=== PATIENT | female | born 1990 | race Caucasian/White ===

== ENCOUNTER 2016-12-12 14:58 | Inpatient (IN) | payer OTHER ==
[~2016-12-12] VITALS: Ht 160 cm; Wt 102.8 kg
[~2016-12-12 14:58] MED LIST: ALBU8.5H IH; ALEN35TA32 PO; ALPR0.5T8 PO; AMIT75 PO; AMOX1TAB16 PO; BECL8.7A5 IH; BETH25 PO; BUDE10.2 IH; CARI350 PO; DILT240C93 PO; FLUC200T PO; GABA-531 PO; GUAIFCF5L PO; MONT10TA21 PO; OMEP20CA4 PO; PERCT PO; SUCR1TAB PO; SUMA25TA9 PO; TIOT185 IH; TOPI25 PO
[2016-12-12] MEDS ORDERED: IPRATROPIUM BROMIDE 0.5 MG/2.5 ML NEB SOLUTION NEB ONE ×3 (15:30→17:30)
[2016-12-12] MEDS ORDERED: ALBUTEROL SULFATE 2.5 MG/0.5 ML NEB SOLUTION NEB ONE ×3 (15:30→17:30)
[2016-12-12 15:36] LABS: HEMATOCRIT 33.4 % (36-46); HEMOGLOBIN 10.6 g/dL (12.0-16.0); MEAN CORPUSCULAR HEMOGLOBIN 25.7 pg (26.0-34.0); MEAN CORPUSCULAR HGB CONC 31.9 G/dL (31.0-37.0); MEAN CORPUSCULAR VOLUME 81 fL (80-100); PLATELET COUNT (AUTO) 366 K/uL (150-450); RED BLOOD CELL COUNT(AUTO) 4.14 MIL/uL (4.00-5.20); RED CELL DISTRIBUTION WIDTH 19.5 % (11.5-14.5); WHITE BLOOD COUNT (AUTO) 15.6 K/uL (4.5-11.0)
[2016-12-12 15:43] LABS: CALCIUM, TOTAL 8.4 mg/dL (8.8-10.5); CREATININE 1.09 mg/dL (0.60-1.30); POTASSIUM 3.5 mmol/L (3.5-5.1)
[2016-12-12 15:48] LABS: ALBUMIN 3.6 g/dL (3.4-5.0); BILIRUBIN,TOTAL 0.1 mg/dL (0.1-1.0); TOTAL PROTEIN, SERUM 6.5 g/dL (6.4-8.2)
[2016-12-12] MEDS ORDERED: MethylPREDNISolone SOD SUCC 125 MG/2 ML VIAL IVP ONE (16:00)
[2016-12-12 16:07] LABS: EOSINOPHILS % (MANUAL) 1 % (1-6); LYMPHOCYTES % (MANUAL) 15 % (22-44); METAMYELOCYTES % 1 % (0-0); MYELOCYTES % 2 % (0-0); RBC MORPHOLOGY COMMENT ABNORMAL R; REACTIVE LYMPHOCYTES 2 % (0-0); TOTAL CELLS COUNTED 100
[2016-12-12 16:10] LABS: ABG A-A DIFF O2 104.2 mmHg (10-20.0); ABG BASE EXCESS -2.3 mmol/L (-2.0-3.0); ABG OXYHEMOGLOBIN 95.5 % (94.0-100.0); ABG PCO2 34 mmHg (35-45); ABG PH 7.428 (7.350-7.450); TEMPERATURE, FAHRENHEIT, BG 98.6 FAHREN (96.0-98.6)
[2016-12-12 16:15] LABS: ALLEN TEST, BLOOD GAS Positive
[2016-12-12] MEDS ORDERED: CefTRIAXone 1 GM/DEXTROSE 50 ML IV ONE (16:45)
[2016-12-12] MEDS ORDERED: MORPHINE SULFATE 4 MG/ML SYRINGE IVP ONE (16:45)
[2016-12-12] MEDS: PIPERACILLIN/TAZO 3.375 GM/D5W 50 ML IV SCH ×2 (17:27→23:34)
[2016-12-12] MEDS ORDERED: 0.9% SODIUM CHLORIDE 5 ML NEB SOLUTION NEB ONE (17:29)
[2016-12-12] MEDS ORDERED: 0.9% SODIUM CHLORIDE 10 ML SYRINGE IVP PRN (18:45)
[2016-12-12] MEDS ORDERED: ONDANSETRON HCL 4 MG/2 ML VIAL IVP PRN (18:45)
[2016-12-12] MEDS ORDERED: ACETAMINOPHEN 325 MG TABLET PO PRN (18:45)
[2016-12-12] MEDS ORDERED: ACETAMINOPHEN 325 MG TABLET PO ONE (19:30)
[2016-12-12 20:12] VITALS: BP 116/60
[2016-12-12 23:08] VITALS: BP 115/49
[2016-12-12] MEDS ORDERED: SODIUM CHLORIDE 0.9% 100 ML ONE (23:31)
[2016-12-13] MEDS: BENZONATATE 100 MG CAPSULE PO SCH ×4 (00:44→20:32)
[2016-12-13] MEDS ORDERED: ACETAMINOPHEN 325 MG TABLET PO PRN (01:45)
[2016-12-13] MEDS ORDERED: 0.9% SODIUM CHLORIDE 10 ML SYRINGE IVP PRN (01:45)
[2016-12-13] MEDS ORDERED: SUMAtriptan SUCCINATE 25 MG TABLET PO PRN (01:45)
[2016-12-13] MEDS ORDERED: ALPRAZolam 0.5 MG TABLET PO PRN (01:45)
[2016-12-13] MEDS ORDERED: MAGNESIUM HYDROXIDE SUSPENSION 30 ML UDCUP PO PRN (01:45)
[2016-12-13] MEDS ORDERED: OxyCODONE HCL/ACETAMINOPHEN 5-325 MG TABLET PO PRN (01:45)
[2016-12-13] MEDS ORDERED: ALBUTEROL SULFATE HFA 90 MCG/PUFF 8 GM INHALER IH PRN (01:45)
[2016-12-13] MEDS ORDERED: ALBUTEROL SULFATE 2.5 MG/0.5 ML NEB SOLUTION NEB PRN (01:45)
[2016-12-13] MEDS ORDERED: ONDANSETRON HCL 4 MG/2 ML VIAL IVP PRN (01:45)
[2016-12-13] MEDS: DOCUSATE SODIUM 100 MG CAPSULE PO SCH ×3 (02:19→20:31)
[2016-12-13] MEDS: CARISOPRODOL 350 MG TABLET PO SCH ×4 (02:19→23:06)
[2016-12-13] MEDS: GABAPENTIN 300 MG CAPSULE PO SCH ×4 (02:19→23:06)
[2016-12-13] MEDS: IPRATROPIUM BROMIDE 0.5 MG/2.5 ML NEB SOLUTION NEB SCH ×5 (02:20→23:03)
[2016-12-13] MEDS: ALBUTEROL SULFATE 2.5 MG/0.5 ML NEB SOLUTION NEB SCH ×4 (02:20→23:02)
[2016-12-13] MEDS: MethylPREDNISolone SOD SUCC 125 MG/2 ML VIAL IVP SCH ×3 (02:23→16:38)
[2016-12-13] MEDS: BUDESONIDE/FORMOTEROL FUMARATE 160-4.5 MCG/PUFF 6.9 GM INHALER IH SCH ×3 (02:29→20:32)
[2016-12-13] MEDS: BETHANECHOL CHLORIDE 25 MG TABLET PO SCH ×3 (02:29→20:31)
[2016-12-13 04:28] VITALS: BP 129/62
[2016-12-13] MEDS: PIPERACILLIN/TAZO 3.375 GM/D5W 50 ML IV SCH (05:00)
[2016-12-13] MEDS: OxyCODONE HCL/ACETAMINOPHEN 5-325 MG TABLET PO PRN ×4 (05:32→20:40)
[2016-12-13 08:07] VITALS: BP 123/65
[2016-12-13] MEDS: PANTOPRAZOLE SODIUM 40 MG/VIAL IVP SCH (09:31)
[2016-12-13] MEDS: BECLOMETHASONE DIPR 80 MCG/PUFF 8.7 GM INHALER IH SCH (09:32)
[2016-12-13] MEDS: TIOTROPIUM BROMIDE 18 MCG/INH HANDIHALER [5] IH SCH (09:33)
[2016-12-13] MEDS: MONTELUKAST SODIUM 10 MG TABLET PO SCH (09:34)
[2016-12-13] MEDS: DILTIAZEM HCL CD 240 MG ER CAPSULE PO SCH (09:34)
[2016-12-13] MEDS: TOPIRAMATE 25 MG TABLET PO SCH (09:34)
[2016-12-13] MEDS: SUCRALFATE 1 GM TABLET PO SCH ×3 (09:34→20:31)
[2016-12-13 12:13] VITALS: BP 115/57
[2016-12-13 16:05] VITALS: BP 99/57
[2016-12-13] MEDS ORDERED: CefTRIAXone 1 GM/DEXTROSE 50 ML IV SCH (17:00)
[2016-12-13 19:15] VITALS: BP 114/67
[2016-12-13] MEDS ORDERED: AMITRIPTYLINE HCL 75 MG TABLET PO SCH (21:00)
[2016-12-13 23:35] VITALS: BP 109/62
[2016-12-14] MEDS: MethylPREDNISolone SOD SUCC 125 MG/2 ML VIAL IVP SCH ×2 (00:25→08:10)
[2016-12-14] MEDS: ALBUTEROL SULFATE 2.5 MG/0.5 ML NEB SOLUTION NEB SCH ×3 (02:57→11:21)
[2016-12-14] MEDS: IPRATROPIUM BROMIDE 0.5 MG/2.5 ML NEB SOLUTION NEB SCH ×3 (02:57→11:21)
[2016-12-14] MEDS: OxyCODONE HCL/ACETAMINOPHEN 5-325 MG TABLET PO PRN ×2 (03:11→08:13)
[2016-12-14 06:04] VITALS: BP 126/57
[2016-12-14] MEDS ORDERED: ALENDRONATE SODIUM 35 MG TABLET PO ONE (06:15)
[2016-12-14 06:39] LABS: HEMATOCRIT 31.2 % (36-46); HEMOGLOBIN 9.8 g/dL (12.0-16.0); MEAN CORPUSCULAR HEMOGLOBIN 25.5 pg (26.0-34.0); MEAN CORPUSCULAR HGB CONC 31.5 G/dL (31.0-37.0); MEAN CORPUSCULAR VOLUME 81 fL (80-100); PLATELET COUNT (AUTO) 383 K/uL (150-450); RED BLOOD CELL COUNT(AUTO) 3.86 MIL/uL (4.00-5.20); RED CELL DISTRIBUTION WIDTH 20.3 % (11.5-14.5); WHITE BLOOD COUNT (AUTO) 25.6 K/uL (4.5-11.0)
[2016-12-14 06:53] LABS: ANION GAP 10 mmol/L (8-16); CALCIUM, TOTAL 8.8 mg/dL (8.8-10.5); CARBON DIOXIDE 26 mmol/L (22-29); CHLORIDE 103 mmol/L (98-107); CREATININE 1.06 mg/dL (0.60-1.30); GLOMERULAR FILTR. RATE CALC > 60 mL/min (>60); POTASSIUM 3.8 mmol/L (3.5-5.1); SODIUM SERUM 139 mmol/L (136-145); UREA NITROGEN, BLOOD 18 mg/dL (7-18)
[2016-12-14 07:48] VITALS: BP 129/57
[2016-12-14] MEDS: BENZONATATE 100 MG CAPSULE PO SCH (08:10)
[2016-12-14] MEDS: PANTOPRAZOLE SODIUM 40 MG/VIAL IVP SCH (08:10)
[2016-12-14] MEDS: GABAPENTIN 300 MG CAPSULE PO SCH (08:10)
[2016-12-14] MEDS: BECLOMETHASONE DIPR 80 MCG/PUFF 8.7 GM INHALER IH SCH (08:11)
[2016-12-14] MEDS: MONTELUKAST SODIUM 10 MG TABLET PO SCH (08:11)
[2016-12-14] MEDS: CARISOPRODOL 350 MG TABLET PO SCH (08:11)
[2016-12-14] MEDS: TIOTROPIUM BROMIDE 18 MCG/INH HANDIHALER [5] IH SCH (08:11)
[2016-12-14] MEDS: DOCUSATE SODIUM 100 MG CAPSULE PO SCH (08:11)
[2016-12-14] MEDS: TOPIRAMATE 25 MG TABLET PO SCH (08:12)
[2016-12-14] MEDS: BUDESONIDE/FORMOTEROL FUMARATE 160-4.5 MCG/PUFF 6.9 GM INHALER IH SCH (08:12)
[2016-12-14] MEDS: DILTIAZEM HCL CD 240 MG ER CAPSULE PO SCH (08:12)
[2016-12-14] MEDS: SUCRALFATE 1 GM TABLET PO SCH (08:12)
[2016-12-14] MEDS: BETHANECHOL CHLORIDE 25 MG TABLET PO SCH (08:13)
[2016-12-14 09:51] LABS: BAND NEUTROPHILS % (MANUAL) 2 % (1-5); LYMPHOCYTES % (MANUAL) 4 % (22-44); METAMYELOCYTES % 1 % (0-0); MYELOCYTES % 2 % (0-0); TOTAL CELLS COUNTED 100
[2016-12-14 09:52] LABS: RBC MORPHOLOGY COMMENT ABNORMAL R
[2016-12-18] MEDS ORDERED: ALENDRONATE SODIUM 35 MG TABLET PO SCH (06:30)
== END 2016-12-14 12:00 | disposition left against medical advice (07) | DRG 140 ==
LOC: EMS 15:06 → 5S 19:06
PROVIDERS: ADMIT Internal Medicine; ATTEND Internal Medicine
DX: J44.1 Chronic obstructive pulmonary disease with (acute) exacerbation (principal); Z99.81 Dependence on supplemental oxygen; E44.0 Moderate protein-calorie malnutrition; Z68.41 Body mass index [BMI] 40.0-44.9, adult; E66.01 Morbid (severe) obesity due to excess calories; I10 Essential (primary) hypertension; E78.00 Pure hypercholesterolemia, unspecified; G43.909 Migraine, unspecified, not intractable, without status migrainosus; E11.9 Type 2 diabetes mellitus without complications; R00.0 Tachycardia, unspecified; F41.9 Anxiety disorder, unspecified; Z87.01 Personal history of pneumonia (recurrent); Z88.8 Allergy status to other drugs, medicaments and biological substances; Z88.1 Allergy status to other antibiotic agents; Z91.011 Allergy to milk products; Z79.899 Other long term (current) drug therapy; I25.2 Old myocardial infarction; Z98.890 Other specified postprocedural states; Z90.49 Acquired absence of other specified parts of digestive tract; Z86.73 Personal history of transient ischemic attack (TIA), and cerebral infarction without residual deficits
CPT/HCPCS: 82805; 87040; 87081; 93005; 94060; 94640; 94660; 96365; 96375; 99285; C9113; J0696; J2270; J2543; J2930; J3535; J7050

== ENCOUNTER 2017-01-06 10:37 | Inpatient (IN) | payer OTHER ==
[~2017-01-06] VITALS: Ht 160 cm; Wt 104.8 kg
[2017-01-06 11:14] LABS: BASOPHILS % (AUTO) 0.2 % (0.0-2.0); EOSINOPHILS % (AUTO) 2.5 % (1.0-6.0); HEMATOCRIT 33.4 % (36-46); HEMOGLOBIN 10.5 g/dL (12.0-16.0); LYMPHOCYTES # (AUTO) 3.6 K/uL (1.0-4.8); LYMPHOCYTES % (AUTO) 28.2 % (22.0-44.0); MEAN CORPUSCULAR HEMOGLOBIN 24.9 pg (26.0-34.0); MEAN CORPUSCULAR HGB CONC 31.6 G/dL (31.0-37.0); MEAN CORPUSCULAR VOLUME 79 fL (80-100); MONOCYTES # (AUTO) 0.9 K/uL (0.1-1.0); NEUTROPHILS # (AUTO) 7.9 K/uL (1.8-7.7); NEUTROPHILS % (AUTO) 62.1 % (40.0-70.0); PLATELET COUNT (AUTO) 432 K/uL (150-450); RED BLOOD CELL COUNT(AUTO) 4.23 MIL/uL (4.00-5.20); WHITE BLOOD COUNT (AUTO) 12.8 K/uL (4.5-11.0)
[2017-01-06 11:28] LABS: INR 0.9 (0.9-1.1); PROTHROMBIN TIME 9.4 SEC (9.4-11.6)
[2017-01-06] MEDS ORDERED: MethylPREDNISolone SOD SUCC 125 MG/2 ML VIAL IVP ONE (11:30)
[2017-01-06 11:41] LABS: ALANINE AMINOTRANSFERASE 80 U/L (12-78); ALBUMIN 3.4 g/dL (3.4-5.0); ANION GAP 11 mmol/L (8-16); ASPARTATE AMINOTRANSFERASE 53 U/L (15-37); BILIRUBIN,TOTAL 0.3 mg/dL (0.1-1.0); CALCIUM, TOTAL 8.1 mg/dL (8.8-10.5); CARBON DIOXIDE 28 mmol/L (22-29); CHLORIDE 101 mmol/L (98-107); CREATINE KINASE, TOTAL 27 U/L (26-192); CREATININE 1.11 mg/dL (0.60-1.30); GLOMERULAR FILTR. RATE CALC 59 mL/min (>60); SODIUM SERUM 140 mmol/L (136-145); TOTAL PROTEIN, SERUM 6.7 g/dL (6.4-8.2); UREA NITROGEN, BLOOD 9 mg/dL (7-18)
[2017-01-06 11:48] LABS: POTASSIUM 2.9 mmol/L (3.5-5.1)
[2017-01-06 12:00] LABS: B-TYPE NATRIURETIC PEPTIDE < 5 pg/mL (0-100)
[2017-01-06] MEDS ORDERED: LEVALBUTEROL HCL 1.25 MG/0.5 ML NEB SOLUTION NEB ONE ×2 (12:15→16:00)
[2017-01-06] MEDS ORDERED: POTASSIUM CHLORIDE 20 MEQ ER TABLET PO ONE (12:15)
[2017-01-06 12:18] LABS: RBC MORPHOLOGY COMMENT ABNORMAL RBC MORPH
[2017-01-06] MEDS ORDERED: SODIUM CHLORIDE 0.9% 1,000 ML IV ONE ×2 (12:26→13:59)
[2017-01-06] MEDS: POTASSIUM CHL 10 MEQ/WATER 50 ML IV SCH ×4 (12:30→16:46)
[2017-01-06] MEDS ORDERED: HYDROmorphone 2 MG/ML SYRINGE IVP ONE ×2 (12:45→15:00)
[2017-01-06] MEDS ORDERED: ONDANSETRON HCL 4 MG/2 ML VIAL IVP ONE (12:45)
[2017-01-06] MEDS ORDERED: 0.9% SODIUM CHLORIDE 5 ML NEB SOLUTION NEB ONE ×2 (13:09→16:08)
[2017-01-06 13:50] LABS: APPEARANCE,URINE CLEAR (CLEAR); GLUCOSE, URINE (UA) 100 mg/dL (NEGATIVE); KETONES,URINE NEGATIVE (NEGATIVE); LEUKOCYTE ESTERASE ,URINE TRACE (NEGATIVE); OCCULT BLOOD,URINE NEGATIVE (NEGATIVE); PH,URINE 6.5 (5.0-8.0); PROTEIN,URINE NEGATIVE (NEGATIVE)
[2017-01-06 14:00] LABS: ADD UA MICROSCOPIC YES
[2017-01-06 14:06] LABS: RBC,URINE None Seen /HPF (0-2); SQUAMOUS EPITHELIAL CELL,UR Few /LPF (None Seen); WBC,URINE 0-2 /HPF (0-5)
[2017-01-06] MEDS ORDERED: CALCIUM GLUCONATE 1,000 MG in DEXTROSE 5%-WATER 50 ML IV ONE (14:45)
[2017-01-06] MEDS ORDERED: ONDANSETRON HCL 4 MG/2 ML VIAL IVP PRN (16:00)
[2017-01-06] MEDS ORDERED: 0.9% SODIUM CHLORIDE 10 ML SYRINGE IVP PRN (16:00)
[2017-01-06] MEDS ORDERED: ACETAMINOPHEN 325 MG TABLET PO PRN (16:00)
[2017-01-06] MEDS ORDERED: IPRATROPIUM BROMIDE 0.5 MG/2.5 ML NEB SOLUTION NEB SCH (19:00)
[2017-01-06] MEDS ORDERED: ALBUTEROL SULFATE 2.5 MG/0.5 ML NEB SOLUTION NEB SCH (19:00)
[2017-01-06 20:32] VITALS: BP 125/70
[2017-01-06] MEDS ORDERED: ALPRAZolam 0.5 MG TABLET PO PRN (22:30)
[2017-01-06] MEDS ORDERED: SUMAtriptan SUCCINATE 25 MG TABLET PO PRN (22:30)
[2017-01-06] MEDS ORDERED: OxyCODONE HCL/ACETAMINOPHEN 5-325 MG TABLET PO SCH (22:30)
[2017-01-06 23:22] VITALS: BP 108/66
[2017-01-06] MEDS: GABAPENTIN 300 MG CAPSULE PO SCH (23:34)
[2017-01-06] MEDS: ALBUTEROL SULFATE 2.5 MG/0.5 ML NEB SOLUTION NEB SCH (23:48)
[2017-01-06] MEDS: IPRATROPIUM BROMIDE 0.5 MG/2.5 ML NEB SOLUTION NEB SCH (23:48)
[2017-01-06] MEDS: BENZONATATE 100 MG CAPSULE PO SCH (23:50)
[2017-01-06] MEDS: AMITRIPTYLINE HCL 75 MG TABLET PO SCH (23:50)
[2017-01-06] MEDS: MethylPREDNISolone SOD SUCC 125 MG/2 ML VIAL IVP SCH (23:50)
[2017-01-06] MEDS: CARISOPRODOL 350 MG TABLET PO SCH (23:51)
[2017-01-07] MEDS: HYDROmorphone HCL 2 MG TABLET PO PRN ×4 (00:12→15:55)
[2017-01-07] MEDS ORDERED: OxyCODONE HCL/ACETAMINOPHEN 5-325 MG TABLET PO PRN (04:30)
[2017-01-07 04:36] VITALS: BP 117/70
[2017-01-07] MEDS: GABAPENTIN 300 MG CAPSULE PO SCH ×3 (05:42→22:26)
[2017-01-07] MEDS: MethylPREDNISolone SOD SUCC 125 MG/2 ML VIAL IVP SCH ×3 (05:43→18:01)
[2017-01-07] MEDS ORDERED: ALENDRONATE SODIUM 35 MG TABLET PO SCH (06:30)
[2017-01-07] MEDS: IPRATROPIUM BROMIDE 0.5 MG/2.5 ML NEB SOLUTION NEB SCH ×5 (06:50→23:00)
[2017-01-07] MEDS: ALBUTEROL SULFATE 2.5 MG/0.5 ML NEB SOLUTION NEB SCH ×5 (06:50→23:00)
[2017-01-07 07:16] VITALS: BP 124/76
[2017-01-07 08:16] LABS: HEMATOCRIT 29.3 % (36-46); HEMOGLOBIN 9.2 g/dL (12.0-16.0); MEAN CORPUSCULAR HEMOGLOBIN 25.2 pg (26.0-34.0); MEAN CORPUSCULAR HGB CONC 31.6 G/dL (31.0-37.0); MEAN CORPUSCULAR VOLUME 80 fL (80-100); PLATELET COUNT (AUTO) 412 K/uL (150-450); RED BLOOD CELL COUNT(AUTO) 3.68 MIL/uL (4.00-5.20); RED CELL DISTRIBUTION WIDTH 20.5 % (11.5-14.5); WHITE BLOOD COUNT (AUTO) 20.3 K/uL (4.5-11.0)
[2017-01-07 08:32] LABS: ANION GAP 12 mmol/L (8-16); CARBON DIOXIDE 23 mmol/L (22-29); CHLORIDE 105 mmol/L (98-107); CREATININE 1.07 mg/dL (0.60-1.30); GLOMERULAR FILTR. RATE CALC > 60 mL/min (>60); POTASSIUM 3.9 mmol/L (3.5-5.1); SODIUM SERUM 140 mmol/L (136-145); UREA NITROGEN, BLOOD 9 mg/dL (7-18)
[2017-01-07 08:38] LABS: ALANINE AMINOTRANSFERASE 90 U/L (12-78); ALBUMIN 3.4 g/dL (3.4-5.0); ASPARTATE AMINOTRANSFERASE 24 U/L (15-37); BILIRUBIN,TOTAL 0.2 mg/dL (0.1-1.0); TOTAL PROTEIN, SERUM 6.6 g/dL (6.4-8.2)
[2017-01-07] MEDS: BENZONATATE 100 MG CAPSULE PO SCH ×2 (08:54→15:55)
[2017-01-07] MEDS: SUCRALFATE 1 GM TABLET PO SCH ×3 (08:54→20:53)
[2017-01-07] MEDS: TOPIRAMATE 25 MG TABLET PO SCH (08:54)
[2017-01-07] MEDS: BETHANECHOL CHLORIDE 25 MG TABLET PO SCH ×2 (08:54→20:54)
[2017-01-07] MEDS: CARISOPRODOL 350 MG TABLET PO SCH ×2 (08:54→16:00)
[2017-01-07] MEDS: MONTELUKAST SODIUM 10 MG TABLET PO SCH (08:55)
[2017-01-07] MEDS: DILTIAZEM HCL CD 240 MG ER CAPSULE PO SCH (08:55)
[2017-01-07] MEDS: TIOTROPIUM BROMIDE 18 MCG/INH HANDIHALER [5] IH SCH (08:55)
[2017-01-07 09:00] LABS: LACTIC ACID 4.9 mmol/L (0.4-2.0)
[2017-01-07 10:12] LABS: REFLEX LACTIC ACID? YES YES
[2017-01-07 10:29] LABS: LYMPHOCYTES % (MANUAL) 6 % (22-44); METAMYELOCYTES % 2 % (0-0); MYELOCYTES % 1 % (0-0); TOTAL CELLS COUNTED 100
[2017-01-07 10:30] LABS: RBC MORPHOLOGY COMMENT ABNORMAL R; WBC MORPHOLOGY TOXIC GRANULATION
[2017-01-07 11:48] VITALS: BP 123/73
[2017-01-07] MEDS: OMEPRAZOLE 20 MG CAPSULE PO SCH (15:55)
[2017-01-07 16:45] VITALS: BP 117/60
[2017-01-07 20:01] VITALS: BP 117/57
[2017-01-07] MEDS ORDERED: SODIUM CHLORIDE 0.9% 100 ML ONE (20:52)
[2017-01-07] MEDS: CefTRIAXone 1 GM/DEXTROSE 50 ML IV SCH (20:53)
[2017-01-07] MEDS: AMITRIPTYLINE HCL 75 MG TABLET PO SCH (20:54)
[2017-01-07] MEDS ORDERED: AMITRIPTYLINE HCL 75 MG TABLET PO SCH (21:00)
[2017-01-08 00:17] VITALS: BP 117/66
[2017-01-08 05:44] VITALS: BP 113/67
[2017-01-08] MEDS: BENZONATATE 100 MG CAPSULE PO SCH ×3 (05:46→15:18)
[2017-01-08] MEDS: MethylPREDNISolone SOD SUCC 125 MG/2 ML VIAL IVP SCH ×4 (05:47→17:21)
[2017-01-08] MEDS: HYDROmorphone HCL 2 MG TABLET PO PRN ×2 (05:47→11:26)
[2017-01-08] MEDS: GABAPENTIN 300 MG CAPSULE PO SCH ×3 (06:44→22:44)
[2017-01-08 07:09] LABS: HEMATOCRIT 28.1 % (36-46); HEMOGLOBIN 9.2 g/dL (12.0-16.0); MEAN CORPUSCULAR HEMOGLOBIN 25.7 pg (26.0-34.0); MEAN CORPUSCULAR HGB CONC 32.8 G/dL (31.0-37.0); MEAN CORPUSCULAR VOLUME 78 fL (80-100); PLATELET COUNT (AUTO) 419 K/uL (150-450); RED BLOOD CELL COUNT(AUTO) 3.59 MIL/uL (4.00-5.20); RED CELL DISTRIBUTION WIDTH 21.7 % (11.5-14.5)
[2017-01-08 07:13] LABS: WHITE BLOOD COUNT (AUTO) 30.1 K/uL (4.5-11.0)
[2017-01-08] MEDS: ALBUTEROL SULFATE 2.5 MG/0.5 ML NEB SOLUTION NEB SCH ×5 (07:22→22:40)
[2017-01-08] MEDS: IPRATROPIUM BROMIDE 0.5 MG/2.5 ML NEB SOLUTION NEB SCH ×5 (07:23→22:40)
[2017-01-08 08:00] LABS: ALBUMIN 3.4 g/dL (3.4-5.0); BILIRUBIN,TOTAL 0.1 mg/dL (0.1-1.0); CALCIUM, TOTAL 9.1 mg/dL (8.8-10.5); CREATININE 1.16 mg/dL (0.60-1.30); POTASSIUM 4.3 mmol/L (3.5-5.1); TOTAL PROTEIN, SERUM 6.1 g/dL (6.4-8.2)
[2017-01-08] MEDS: CARISOPRODOL 350 MG TABLET PO SCH ×3 (08:00→15:18)
[2017-01-08 08:17] LABS: BAND NEUTROPHILS % (MANUAL) 23 % (1-5); LYMPHOCYTES % (MANUAL) 18 % (22-44); TOTAL CELLS COUNTED 100
[2017-01-08 08:18] LABS: RBC MORPHOLOGY COMMENT ABNORMAL RBC MORPH
[2017-01-08 08:19] VITALS: BP 138/79
[2017-01-08] MEDS: OMEPRAZOLE 20 MG CAPSULE PO SCH (08:47)
[2017-01-08] MEDS: SUCRALFATE 1 GM TABLET PO SCH ×3 (08:47→20:45)
[2017-01-08] MEDS: TOPIRAMATE 25 MG TABLET PO SCH (08:47)
[2017-01-08] MEDS: BETHANECHOL CHLORIDE 25 MG TABLET PO SCH ×2 (08:47→20:45)
[2017-01-08] MEDS: DILTIAZEM HCL CD 240 MG ER CAPSULE PO SCH (08:47)
[2017-01-08] MEDS: TIOTROPIUM BROMIDE 18 MCG/INH HANDIHALER [5] IH SCH (08:48)
[2017-01-08] MEDS: MONTELUKAST SODIUM 10 MG TABLET PO SCH (08:48)
[2017-01-08 11:05] VITALS: BP 119/68
[2017-01-08 15:24] VITALS: BP 127/78
[2017-01-08] MEDS: HYDROmorphone 2 MG/ML SYRINGE IVP PRN ×2 (17:22→20:45)
[2017-01-08 19:38] VITALS: BP 115/51
[2017-01-08] MEDS: AMITRIPTYLINE HCL 75 MG TABLET PO SCH (20:45)
[2017-01-08] MEDS: CefTRIAXone 1 GM/DEXTROSE 50 ML IV SCH (20:46)
[2017-01-08] MEDS ORDERED: SODIUM CHLORIDE 0.9% 250 ML IV ONE (20:52)
[2017-01-09] VITALS (8 sets, daily range): BP systolic 100–134; BP diastolic 57–99
[2017-01-09] MEDS: BENZONATATE 100 MG CAPSULE PO SCH ×3 (00:46→16:28)
[2017-01-09] MEDS: MethylPREDNISolone SOD SUCC 125 MG/2 ML VIAL IVP SCH ×4 (00:46→17:48)
[2017-01-09] MEDS: HYDROmorphone 2 MG/ML SYRINGE IVP PRN ×5 (00:57→21:10)
[2017-01-09] MEDS ORDERED: ALENDRONATE SODIUM 70 MG TABLET PO SCH (06:30)
[2017-01-09] MEDS: GABAPENTIN 300 MG CAPSULE PO SCH ×3 (06:42→22:29)
[2017-01-09] MEDS: IPRATROPIUM BROMIDE 0.5 MG/2.5 ML NEB SOLUTION NEB SCH ×5 (06:52→23:24)
[2017-01-09] MEDS: ALBUTEROL SULFATE 2.5 MG/0.5 ML NEB SOLUTION NEB SCH ×5 (06:52→23:24)
[2017-01-09 07:37] LABS: HEMATOCRIT 29.3 % (36-46); HEMOGLOBIN 9.4 g/dL (12.0-16.0); MEAN CORPUSCULAR HEMOGLOBIN 25.4 pg (26.0-34.0); MEAN CORPUSCULAR VOLUME 79 fL (80-100); PLATELET COUNT (AUTO) 417 K/uL (150-450); RED BLOOD CELL COUNT(AUTO) 3.69 MIL/uL (4.00-5.20); RED CELL DISTRIBUTION WIDTH 21.5 % (11.5-14.5)
[2017-01-09] MEDS: TIOTROPIUM BROMIDE 18 MCG/INH HANDIHALER [5] IH SCH (07:59)
[2017-01-09] MEDS: SUCRALFATE 1 GM TABLET PO SCH ×3 (07:59→21:10)
[2017-01-09] MEDS: OMEPRAZOLE 20 MG CAPSULE PO SCH (08:00)
[2017-01-09] MEDS: BETHANECHOL CHLORIDE 25 MG TABLET PO SCH ×2 (08:00→21:10)
[2017-01-09] MEDS: MONTELUKAST SODIUM 10 MG TABLET PO SCH (08:00)
[2017-01-09] MEDS: DILTIAZEM HCL CD 240 MG ER CAPSULE PO SCH (08:00)
[2017-01-09] MEDS: CARISOPRODOL 350 MG TABLET PO SCH ×3 (08:00→16:00)
[2017-01-09] MEDS: TOPIRAMATE 25 MG TABLET PO SCH (08:00)
[2017-01-09 08:08] LABS: ALBUMIN 3.3 g/dL (3.4-5.0); BILIRUBIN,TOTAL 0.2 mg/dL (0.1-1.0); CALCIUM, TOTAL 8.9 mg/dL (8.8-10.5); CREATININE 1.28 mg/dL (0.60-1.30); POTASSIUM 3.8 mmol/L (3.5-5.1); TOTAL PROTEIN, SERUM 6.4 g/dL (6.4-8.2)
[2017-01-09 08:59] LABS: BAND NEUTROPHILS % (MANUAL) 4 % (1-5); LYMPHOCYTES % (MANUAL) 8 % (22-44); TOTAL CELLS COUNTED 100
[2017-01-09] MEDS ORDERED: SODIUM CHLORIDE 0.9% 100 ML ONE (21:09)
[2017-01-09] MEDS: CefTRIAXone 1 GM/DEXTROSE 50 ML IV SCH (21:10)
[2017-01-09] MEDS: AMITRIPTYLINE HCL 75 MG TABLET PO SCH (22:29)
[2017-01-10] MEDS: HYDROmorphone 2 MG/ML SYRINGE IVP PRN ×5 (00:13→20:09)
[2017-01-10] MEDS: MethylPREDNISolone SOD SUCC 125 MG/2 ML VIAL IVP SCH ×4 (00:13→17:52)
[2017-01-10] MEDS: BENZONATATE 100 MG CAPSULE PO SCH ×3 (00:13→16:04)
[2017-01-10 04:31] VITALS: BP 112/74
[2017-01-10] MEDS: GABAPENTIN 300 MG CAPSULE PO SCH ×3 (06:08→22:56)
[2017-01-10] MEDS: ALBUTEROL SULFATE 2.5 MG/0.5 ML NEB SOLUTION NEB SCH ×5 (07:30→22:48)
[2017-01-10] MEDS: IPRATROPIUM BROMIDE 0.5 MG/2.5 ML NEB SOLUTION NEB SCH ×5 (07:30→22:49)
[2017-01-10 07:41] LABS: BASOPHILS # (AUTO) 0.02 K/uL (0.00-0.20); BASOPHILS % (AUTO) 0.1 % (0.0-2.0); EOSINOPHILS # (AUTO) 0.01 K/uL (0.00-0.70); EOSINOPHILS % (AUTO) 0.03 % (1.0-6.0); HEMOGLOBIN 9.1 g/dL (12.0-16.0); LYMPHOCYTES # (AUTO) 1.1 K/uL (1.0-4.8); LYMPHOCYTES % (AUTO) 4.5 % (22.0-44.0); MEAN CORPUSCULAR HGB CONC 31.4 G/dL (31.0-37.0); MEAN CORPUSCULAR VOLUME 80 fL (80-100); MONOCYTES # (AUTO) 1.1 K/uL (0.1-1.0); MONOCYTES % (AUTO) 4.2 % (2.0-9.0); NEUTROPHILS # (AUTO) 22.5 K/uL (1.8-7.7); PLATELET COUNT (AUTO) 340 K/uL (150-450); RED BLOOD CELL COUNT(AUTO) 3.63 MIL/uL (4.00-5.20); RED CELL DISTRIBUTION WIDTH 21.5 % (11.5-14.5); WHITE BLOOD COUNT (AUTO) 24.7 K/uL (4.5-11.0)
[2017-01-10 07:42] VITALS: BP 126/69
[2017-01-10 07:50] LABS: NEUTROPHILS % (AUTO) 91.2 % (40.0-70.0); RBC MORPHOLOGY COMMENT ABNORMAL RBC MORPH
[2017-01-10 07:57] LABS: ALANINE AMINOTRANSFERASE 38 U/L (12-78); ALBUMIN 3.2 g/dL (3.4-5.0); ANION GAP 8 mmol/L (8-16); ASPARTATE AMINOTRANSFERASE 10 U/L (15-37); BILIRUBIN,TOTAL 0.1 mg/dL (0.1-1.0); CALCIUM, TOTAL 8.5 mg/dL (8.8-10.5); CARBON DIOXIDE 31 mmol/L (22-29); CHLORIDE 103 mmol/L (98-107); CREATININE 0.83 mg/dL (0.60-1.30); GLOMERULAR FILTR. RATE CALC > 60 mL/min (>60); POTASSIUM 3.8 mmol/L (3.5-5.1); SODIUM SERUM 142 mmol/L (136-145); UREA NITROGEN, BLOOD 20 mg/dL (7-18)
[2017-01-10] MEDS: TIOTROPIUM BROMIDE 18 MCG/INH HANDIHALER [5] IH SCH (08:01)
[2017-01-10] MEDS: SUCRALFATE 1 GM TABLET PO SCH ×3 (08:01→20:08)
[2017-01-10] MEDS: DILTIAZEM HCL CD 240 MG ER CAPSULE PO SCH (08:02)
[2017-01-10] MEDS: MONTELUKAST SODIUM 10 MG TABLET PO SCH (08:02)
[2017-01-10] MEDS: TOPIRAMATE 25 MG TABLET PO SCH (08:02)
[2017-01-10] MEDS: OMEPRAZOLE 20 MG CAPSULE PO SCH (08:02)
[2017-01-10] MEDS: BETHANECHOL CHLORIDE 25 MG TABLET PO SCH ×2 (08:02→20:08)
[2017-01-10] MEDS: CARISOPRODOL 350 MG TABLET PO SCH ×3 (08:07→16:00)
[2017-01-10 11:28] VITALS: BP 125/78
[2017-01-10 15:27] VITALS: BP 103/50
[2017-01-10] MEDS: NITROFURANTOIN MACROCRYSTAL 100 MG CAPSULE PO SCH (16:04)
[2017-01-10 19:34] VITALS: BP 117/75
[2017-01-11 00:03] VITALS: BP 109/63
[2017-01-11] MEDS: AMITRIPTYLINE HCL 75 MG TABLET PO SCH (00:13)
[2017-01-11] MEDS: BENZONATATE 100 MG CAPSULE PO SCH ×2 (00:14→08:45)
[2017-01-11] MEDS: NITROFURANTOIN MACROCRYSTAL 100 MG CAPSULE PO SCH ×3 (00:14→12:35)
[2017-01-11] MEDS: GABAPENTIN 300 MG CAPSULE PO SCH ×2 (00:14→08:44)
[2017-01-11] MEDS: MethylPREDNISolone SOD SUCC 125 MG/2 ML VIAL IVP SCH (00:15)
[2017-01-11] MEDS: HYDROmorphone 2 MG/ML SYRINGE IVP PRN ×4 (00:16→14:53)
[2017-01-11 04:13] VITALS: BP 106/58
[2017-01-11 07:34] VITALS: BP 113/74
[2017-01-11 07:54] LABS: EOSINOPHILS # (AUTO) 0.02 K/uL (0.00-0.70); EOSINOPHILS % (AUTO) 0.08 % (1.0-6.0); HEMATOCRIT 28.8 % (36-46); HEMOGLOBIN 9.1 g/dL (12.0-16.0); LYMPHOCYTES % (AUTO) 4.5 % (22.0-44.0); MEAN CORPUSCULAR HEMOGLOBIN 24.9 pg (26.0-34.0); MEAN CORPUSCULAR HGB CONC 31.6 G/dL (31.0-37.0); MEAN CORPUSCULAR VOLUME 79 fL (80-100); MONOCYTES # (AUTO) 1.4 K/uL (0.1-1.0); PLATELET COUNT (AUTO) 349 K/uL (150-450); RED BLOOD CELL COUNT(AUTO) 3.66 MIL/uL (4.00-5.20); RED CELL DISTRIBUTION WIDTH 21.3 % (11.5-14.5); WHITE BLOOD COUNT (AUTO) 22.4 K/uL (4.5-11.0)
[2017-01-11] MEDS: CARISOPRODOL 350 MG TABLET PO SCH ×2 (08:00)
[2017-01-11 08:05] LABS: NEUTROPHILS % (AUTO) 89.4 % (40.0-70.0)
[2017-01-11 08:40] LABS: ALANINE AMINOTRANSFERASE 38 U/L (12-78); ALBUMIN 3.1 g/dL (3.4-5.0); ANION GAP 7 mmol/L (8-16); ASPARTATE AMINOTRANSFERASE 10 U/L (15-37); BILIRUBIN,TOTAL 0.2 mg/dL (0.1-1.0); CALCIUM, TOTAL 8.2 mg/dL (8.8-10.5); CARBON DIOXIDE 31 mmol/L (22-29); CHLORIDE 104 mmol/L (98-107); CREATININE 0.82 mg/dL (0.60-1.30); GLOMERULAR FILTR. RATE CALC > 60 mL/min (>60); POTASSIUM 3.8 mmol/L (3.5-5.1); SODIUM SERUM 142 mmol/L (136-145); TOTAL PROTEIN, SERUM 5.8 g/dL (6.4-8.2); UREA NITROGEN, BLOOD 17 mg/dL (7-18)
[2017-01-11] MEDS: SUCRALFATE 1 GM TABLET PO SCH (08:45)
[2017-01-11] MEDS: TIOTROPIUM BROMIDE 18 MCG/INH HANDIHALER [5] IH SCH (08:45)
[2017-01-11] MEDS: DILTIAZEM HCL CD 240 MG ER CAPSULE PO SCH (08:45)
[2017-01-11] MEDS: OMEPRAZOLE 20 MG CAPSULE PO SCH (08:46)
[2017-01-11] MEDS: TOPIRAMATE 25 MG TABLET PO SCH (08:46)
[2017-01-11] MEDS: MONTELUKAST SODIUM 10 MG TABLET PO SCH (08:46)
[2017-01-11] MEDS: BETHANECHOL CHLORIDE 25 MG TABLET PO SCH (08:46)
[2017-01-11] MEDS: IPRATROPIUM BROMIDE 0.5 MG/2.5 ML NEB SOLUTION NEB SCH ×3 (08:57→15:43)
[2017-01-11] MEDS: ALBUTEROL SULFATE 2.5 MG/0.5 ML NEB SOLUTION NEB SCH ×3 (08:57→15:43)
[2017-01-11] MEDS ORDERED: PredniSONE 20 MG TABLET PO SCH (09:00)
[2017-01-11 11:15] LABS: RBC MORPHOLOGY COMMENT ABNORMAL RBC MORPH
[2017-01-11 11:50] VITALS: BP 120/57
== END 2017-01-11 16:50 | disposition home or self-care (01) | DRG 720 ==
LOC: EMS 10:47 → 5S 19:06
PROVIDERS: ADMIT Hospitalist; ATTEND Hospitalist
DX: A41.9 Sepsis, unspecified organism (principal); J18.9 Pneumonia, unspecified organism; J84.10 Pulmonary fibrosis, unspecified; J44.0 Chronic obstructive pulmonary disease with (acute) lower respiratory infection; Z99.81 Dependence on supplemental oxygen; N39.0 Urinary tract infection, site not specified; J44.1 Chronic obstructive pulmonary disease with (acute) exacerbation; E87.6 Hypokalemia; M79.7 Fibromyalgia; N31.9 Neuromuscular dysfunction of bladder, unspecified; I10 Essential (primary) hypertension; G89.4 Chronic pain syndrome; G47.33 Obstructive sleep apnea (adult) (pediatric); E78.5 Hyperlipidemia, unspecified; E78.00 Pure hypercholesterolemia, unspecified; B96.20 Unspecified Escherichia coli [E. coli] as the cause of diseases classified elsewhere; T38.0X5A Adverse effect of glucocorticoids and synthetic analogues, initial encounter; F41.9 Anxiety disorder, unspecified; D63.8 Anemia in other chronic diseases classified elsewhere; J45.909 Unspecified asthma, uncomplicated; R73.9 Hyperglycemia, unspecified; E66.9 Obesity, unspecified; G43.909 Migraine, unspecified, not intractable, without status migrainosus; Z68.41 Body mass index [BMI] 40.0-44.9, adult; J98.4 Other disorders of lung; Z90.49 Acquired absence of other specified parts of digestive tract; Z98.890 Other specified postprocedural states; Z88.1 Allergy status to other antibiotic agents; Z88.6 Allergy status to analgesic agent; Z88.8 Allergy status to other drugs, medicaments and biological substances; Z86.73 Personal history of transient ischemic attack (TIA), and cerebral infarction without residual deficits; Z87.01 Personal history of pneumonia (recurrent); I25.2 Old myocardial infarction; Z79.51 Long term (current) use of inhaled steroids; Z91.19 Patient's noncompliance with other medical treatment and regimen; Z79.899 Other long term (current) drug therapy; Z91.011 Allergy to milk products
CPT/HCPCS: 83605; 85379; 87081; 87086; 93005; 94640; 96361; 96374; 96375; 96376; 99285; J0610; J0696; J1170; J2405; J2930; J3480; J7030; J7050; J7060

== ENCOUNTER 2017-01-23 23:37 | Emergency (ER) | payer OTHER ==
[~2017-01-23] VITALS: Ht 160 cm; Wt 97.7 kg
[~2017-01-23 23:37] MED LIST changes: -AMOX1TAB16 PO
[2017-01-24] MEDS ORDERED: ACETAMINOPHEN 325 MG TABLET PO ONE (00:15)
[2017-01-24] MEDS ORDERED: ALBUTEROL SULFATE 5 MG/ML 20 ML NEB SOLN [BULK] NEB ONE (00:15)
[2017-01-24] MEDS ORDERED: PredniSONE 20 MG TABLET PO ONE (00:15)
[2017-01-24] MEDS ORDERED: IPRATROPIUM BROMIDE 0.5 MG/2.5 ML NEB SOLUTION NEB ONE (00:15)
[2017-01-24 01:04] LABS: APPEARANCE,URINE CLOUDY (CLEAR); GLUCOSE, URINE (UA) NEGATIVE (NEGATIVE); KETONES,URINE NEGATIVE (NEGATIVE); LEUKOCYTE ESTERASE ,URINE MODERATE (NEGATIVE); OCCULT BLOOD,URINE NEGATIVE (NEGATIVE); PROTEIN,URINE TRACE (NEGATIVE)
[2017-01-24 01:09] LABS: SQUAMOUS EPITHELIAL CELL,UR Moderate /LPF (None Seen)
[2017-01-24 01:11] LABS: CALCIUM OXALATE CRYSTALS,UR Few /LPF (None Seen); RBC,URINE None Seen /HPF (0-2)
[2017-01-24 01:50] VITALS: BP 135/96
== END 2017-01-24 02:37 | disposition home or self-care (01) ==
LOC: EMS 23:41
DX: J44.1 Chronic obstructive pulmonary disease with (acute) exacerbation (principal); N39.0 Urinary tract infection, site not specified; R00.0 Tachycardia, unspecified; R51 Headache; I11.9 Hypertensive heart disease without heart failure; I25.2 Old myocardial infarction; E78.00 Pure hypercholesterolemia, unspecified; Z88.1 Allergy status to other antibiotic agents; Z91.011 Allergy to milk products
CPT/HCPCS: 71010; 81001; 84703; 87077; 87086; 93005; 94644; 99285; J7512; J7611

== ENCOUNTER 2017-01-24 11:36 | Emergency (ER) | payer OTHER ==
[~2017-01-24] VITALS: Ht 160 cm; Wt 95.5 kg
[2017-01-24] MEDS ORDERED: ALBUTEROL SULFATE 2.5 MG/0.5 ML NEB SOLUTION NEB ONE (12:15)
[2017-01-24] MEDS ORDERED: IPRATROPIUM BROMIDE 0.5 MG/2.5 ML NEB SOLUTION NEB ONE (12:15)
[2017-01-24] MEDS ORDERED: 0.9% SODIUM CHLORIDE 5 ML NEB SOLUTION NEB ONE ×2 (12:36→12:52)
[2017-01-24] MEDS ORDERED: CefTRIAXone 1 GM/DEXTROSE 50 ML IV ONE (17:00)
[2017-01-24] MEDS ORDERED: MethylPREDNISolone SOD SUCC 125 MG/2 ML VIAL IVP ONE (17:00)
[2017-01-24] MEDS ORDERED: MORPHINE SULFATE 4 MG/ML SYRINGE IVP ONE ×2 (17:00→19:45)
[2017-01-24] MEDS ORDERED: ONDANSETRON HCL 4 MG/2 ML VIAL IVP ONE (17:00)
[2017-01-24 17:14] LABS: BASOPHILS % (AUTO) 0.3 % (0.0-2.0); EOSINOPHILS % (AUTO) 0 % (1.0-6.0); HEMATOCRIT 32.2 % (36-46); HEMOGLOBIN 10.1 g/dL (12.0-16.0); LYMPHOCYTES # (AUTO) 1.6 K/uL (1.0-4.8); LYMPHOCYTES % (AUTO) 8.6 % (22.0-44.0); MEAN CORPUSCULAR HEMOGLOBIN 24.8 pg (26.0-34.0); MEAN CORPUSCULAR HGB CONC 31.3 G/dL (31.0-37.0); MEAN CORPUSCULAR VOLUME 79 fL (80-100); MONOCYTES # (AUTO) 0.8 K/uL (0.1-1.0); MONOCYTES % (AUTO) 4.3 % (2.0-9.0); NEUTROPHILS # (AUTO) 16.4 K/uL (1.8-7.7); PLATELET COUNT (AUTO) 282 K/uL (150-450); RED BLOOD CELL COUNT(AUTO) 4.07 MIL/uL (4.00-5.20); RED CELL DISTRIBUTION WIDTH 21.9 % (11.5-14.5); WHITE BLOOD COUNT (AUTO) 18.8 K/uL (4.5-11.0)
[2017-01-24 17:19] LABS: NEUTROPHILS % (AUTO) 86.8 % (40.0-70.0)
[2017-01-24 17:23] LABS: ANION GAP 10 mmol/L (8-16); CALCIUM, TOTAL 9.5 mg/dL (8.8-10.5); CARBON DIOXIDE 24 mmol/L (22-29); CHLORIDE 105 mmol/L (98-107); CREATININE 0.88 mg/dL (0.60-1.30); GLOMERULAR FILTR. RATE CALC > 60 mL/min (>60); POTASSIUM 4.1 mmol/L (3.5-5.1); SODIUM SERUM 139 mmol/L (136-145); UREA NITROGEN, BLOOD 9 mg/dL (7-18)
[2017-01-24 17:29] LABS: ALANINE AMINOTRANSFERASE 45 U/L (12-78); ALBUMIN 3.7 g/dL (3.4-5.0); ASPARTATE AMINOTRANSFERASE 14 U/L (15-37); BILIRUBIN,TOTAL 0.3 mg/dL (0.1-1.0); CREATINE KINASE, TOTAL 50 U/L (26-192)
[2017-01-24 17:44] LABS: B-TYPE NATRIURETIC PEPTIDE 37 pg/mL (0-100)
[2017-01-24 17:47] LABS: RBC MORPHOLOGY COMMENT ABNORMAL RBC MORPH
[2017-01-24] MEDS ORDERED: SODIUM CHLORIDE 0.9% 1,000 ML IV ONE (18:30)
[2017-01-24 19:14] VITALS: BP 133/81
== END 2017-01-24 20:10 | disposition home or self-care (01) ==
LOC: EMS 11:38
DX: J45.901 Unspecified asthma with (acute) exacerbation (principal); N39.0 Urinary tract infection, site not specified; J44.9 Chronic obstructive pulmonary disease, unspecified; I11.9 Hypertensive heart disease without heart failure; I25.2 Old myocardial infarction; E78.00 Pure hypercholesterolemia, unspecified; Z86.73 Personal history of transient ischemic attack (TIA), and cerebral infarction without residual deficits; Z87.01 Personal history of pneumonia (recurrent); Z88.1 Allergy status to other antibiotic agents; Z88.6 Allergy status to analgesic agent; Z88.8 Allergy status to other drugs, medicaments and biological substances; Z91.011 Allergy to milk products
CPT/HCPCS: 36415; 80053; 82550; 83880; 84484; 85025; 93005; 94640; 96361; 96365; 96375; 96376; 99285; J0696; J2270; J2405; J2930; J7030; J7613

== ENCOUNTER 2017-01-26 13:45 | Inpatient (IN) | payer OTHER ==
[~2017-01-26] VITALS: Ht 160 cm; Wt 100.2 kg
[2017-01-26] MEDS ORDERED: IPRATROPIUM BROMIDE 0.5 MG/2.5 ML NEB SOLUTION NEB ONE ×3 (16:34→19:45)
[2017-01-26] MEDS ORDERED: ALBUTEROL SULFATE 2.5 MG/0.5 ML NEB SOLUTION NEB ONE ×2 (16:34→19:30)
[2017-01-26] MEDS ORDERED: OxyCODONE HCL/ACETAMINOPHEN 5-325 MG TABLET ONE (16:42)
[2017-01-26] MEDS ORDERED: ZOLPIDEM TARTRATE 10 MG TABLET PO PRN (19:45)
[2017-01-26] MEDS ORDERED: ALBUTEROL SULFATE 5 MG/ML 20 ML NEB SOLN [BULK] NEB ONE (19:45)
[2017-01-26] MEDS ORDERED: ACETAMINOPHEN 325 MG TABLET PO PRN (19:45)
[2017-01-26] MEDS ORDERED: OxyCODONE HCL/ACETAMINOPHEN 5-325 MG TABLET PO PRN ×2 (19:45)
[2017-01-26] MEDS ORDERED: ALBUTEROL SULFATE 2.5 MG/0.5 ML NEB SOLUTION NEB PRN (19:45)
[2017-01-26] MEDS: ALBUTEROL SULFATE 2.5 MG/0.5 ML NEB SOLUTION NEB SCH (20:00)
[2017-01-26] MEDS: IPRATROPIUM BROMIDE 0.5 MG/2.5 ML NEB SOLUTION NEB SCH (20:00)
[2017-01-26] MEDS ORDERED: ASPIRIN 325 MG TABLET PO ONE (20:30)
[2017-01-26 20:45] VITALS: BP 109/49
[2017-01-26] MEDS ORDERED: SUMAtriptan SUCCINATE 25 MG TABLET PO PRN (21:45)
[2017-01-26] MEDS ORDERED: ALPRAZolam 1 MG TABLET PO PRN (21:45)
[2017-01-26] MEDS: AMITRIPTYLINE HCL 75 MG TABLET PO SCH (22:39)
[2017-01-26] MEDS: HYDROmorphone 2 MG/ML SYRINGE IVP PRN (22:46)
[2017-01-26 23:27] VITALS: BP 124/71
[2017-01-26] MEDS: HEPARIN SODIUM,PORCINE 5,000 UNITS/ML VIAL SQ SCH (23:43)
[2017-01-26] MEDS: GABAPENTIN 300 MG CAPSULE PO SCH (23:43)
[2017-01-26] MEDS: POTASSIUM CHL 20 MEQ/D5-0.45NS 1,000 ML IV SCH (23:44)
[2017-01-26] MEDS: CefoTEtan DISOD 1 GM/DEXTROSE 50 ML IV SCH (23:44)
[2017-01-26] MEDS: CARISOPRODOL 350 MG TABLET PO SCH (23:45)
[2017-01-27] MEDS: ALBUTEROL SULFATE 2.5 MG/0.5 ML NEB SOLUTION NEB SCH ×4 (01:32→19:04)
[2017-01-27] MEDS: IPRATROPIUM BROMIDE 0.5 MG/2.5 ML NEB SOLUTION NEB SCH ×4 (01:32→19:03)
[2017-01-27 04:19] VITALS: BP 105/66
[2017-01-27 07:49] VITALS: BP 106/60
[2017-01-27] MEDS: GABAPENTIN 300 MG CAPSULE PO SCH ×2 (07:49→16:12)
[2017-01-27] MEDS: BETHANECHOL CHLORIDE 25 MG TABLET PO SCH ×2 (07:50→21:17)
[2017-01-27] MEDS: SUCRALFATE 1 GM TABLET PO SCH ×3 (07:50→21:17)
[2017-01-27] MEDS: DILTIAZEM HCL CD 240 MG ER CAPSULE PO SCH (07:50)
[2017-01-27] MEDS: TOPIRAMATE 25 MG TABLET PO SCH (07:50)
[2017-01-27] MEDS: BECLOMETHASONE DIPR 80 MCG/PUFF 8.7 GM INHALER IH SCH (07:50)
[2017-01-27] MEDS: PANTOPRAZOLE SODIUM 40 MG DR TABLET PO SCH (07:50)
[2017-01-27] MEDS: MONTELUKAST SODIUM 10 MG TABLET PO SCH (07:50)
[2017-01-27] MEDS: HYDROmorphone 2 MG/ML SYRINGE IVP PRN ×5 (07:51→21:18)
[2017-01-27] MEDS: HEPARIN SODIUM,PORCINE 5,000 UNITS/ML VIAL SQ SCH ×2 (07:51→16:12)
[2017-01-27] MEDS: CARISOPRODOL 350 MG TABLET PO SCH ×2 (07:51→16:00)
[2017-01-27] MEDS: CefoTEtan DISOD 1 GM/DEXTROSE 50 ML IV SCH ×2 (10:13→21:18)
[2017-01-27 11:23] VITALS: BP 110/67
[2017-01-27] MEDS ORDERED: 0.9% SODIUM CHLORIDE 5 ML NEB SOLUTION NEB ONE (12:04)
[2017-01-27 14:39] LABS: BASOPHILS # (AUTO) 0.07 K/uL (0.00-0.20); BASOPHILS % (AUTO) 0.5 % (0.0-2.0); EOSINOPHILS # (AUTO) 0.14 K/uL (0.00-0.70); EOSINOPHILS % (AUTO) 1.12 % (1.0-6.0); HEMATOCRIT 27.6 % (36-46); HEMOGLOBIN 8.8 g/dL (12.0-16.0); LYMPHOCYTES # (AUTO) 2.6 K/uL (1.0-4.8); LYMPHOCYTES % (AUTO) 21.6 % (22.0-44.0); MEAN CORPUSCULAR HEMOGLOBIN 25.4 pg (26.0-34.0); MEAN CORPUSCULAR HGB CONC 31.7 G/dL (31.0-37.0); MEAN CORPUSCULAR VOLUME 80 fL (80-100); MONOCYTES # (AUTO) 1.1 K/uL (0.1-1.0); MONOCYTES % (AUTO) 8.7 % (2.0-9.0); NEUTROPHILS # (AUTO) 8.3 K/uL (1.8-7.7); NEUTROPHILS % (AUTO) 68.1 % (40.0-70.0); PLATELET COUNT (AUTO) 272 K/uL (150-450); RED BLOOD CELL COUNT(AUTO) 3.46 MIL/uL (4.00-5.20); RED CELL DISTRIBUTION WIDTH 22.4 % (11.5-14.5); WHITE BLOOD COUNT (AUTO) 12.2 K/uL (4.5-11.0)
[2017-01-27 14:42] LABS: ANION GAP 7 mmol/L (8-16); CALCIUM, TOTAL 8.3 mg/dL (8.8-10.5); CARBON DIOXIDE 30 mmol/L (22-29); CHLORIDE 105 mmol/L (98-107); GLOMERULAR FILTR. RATE CALC > 60 mL/min (>60); POTASSIUM 3.9 mmol/L (3.5-5.1); SODIUM SERUM 142 mmol/L (136-145); UREA NITROGEN, BLOOD 15 mg/dL (7-18)
[2017-01-27 14:43] LABS: ALANINE AMINOTRANSFERASE 34 U/L (12-78); ALBUMIN 3.4 g/dL (3.4-5.0); ASPARTATE AMINOTRANSFERASE 10 U/L (15-37); B-TYPE NATRIURETIC PEPTIDE 37 pg/mL (0-100); BILIRUBIN,TOTAL 0.2 mg/dL (0.1-1.0)
[2017-01-27 14:52] LABS: ANION GAP 7 mmol/L (8-16); CALCIUM, TOTAL 8.1 mg/dL (8.8-10.5); CARBON DIOXIDE 30 mmol/L (22-29); CHLORIDE 107 mmol/L (98-107); CREATININE 0.96 mg/dL (0.60-1.30); GLOMERULAR FILTR. RATE CALC > 60 mL/min (>60); POTASSIUM 3.9 mmol/L (3.5-5.1); SODIUM SERUM 144 mmol/L (136-145); UREA NITROGEN, BLOOD 12 mg/dL (7-18)
[2017-01-27 14:56] LABS: HEMATOCRIT 29.3 % (36-46); HEMOGLOBIN 9.1 g/dL (12.0-16.0); MEAN CORPUSCULAR HEMOGLOBIN 24.6 pg (26.0-34.0); MEAN CORPUSCULAR HGB CONC 31.1 G/dL (31.0-37.0); MEAN CORPUSCULAR VOLUME 79 fL (80-100); PLATELET COUNT (AUTO) 263 K/uL (150-450); RED BLOOD CELL COUNT(AUTO) 3.71 MIL/uL (4.00-5.20); RED CELL DISTRIBUTION WIDTH 21.8 % (11.5-14.5); WHITE BLOOD COUNT (AUTO) 15.1 K/uL (4.5-11.0)
[2017-01-27 14:57] LABS: EOSINOPHILS % (AUTO) 0.2 % (1.0-6.0); LYMPHOCYTES # (AUTO) 1.7 K/uL (1.0-4.8); LYMPHOCYTES % (AUTO) 11.2 % (22.0-44.0); MONOCYTES % (AUTO) 6.6 % (2.0-9.0); NEUTROPHILS # (AUTO) 12.2 K/uL (1.8-7.7); RBC MORPHOLOGY COMMENT ABNORMAL RBC MORPH
[2017-01-27] MEDS: POTASSIUM CHL 20 MEQ/D5-0.45NS 1,000 ML IV SCH (16:12)
[2017-01-27 16:30] VITALS: BP 117/73
[2017-01-27 20:00] VITALS: BP 122/56
[2017-01-27] MEDS: AMITRIPTYLINE HCL 75 MG TABLET PO SCH (21:17)
[2017-01-28] MEDS: GABAPENTIN 300 MG CAPSULE PO SCH ×4 (00:40→23:19)
[2017-01-28] MEDS: HEPARIN SODIUM,PORCINE 5,000 UNITS/ML VIAL SQ SCH ×4 (00:40→23:19)
[2017-01-28 00:46] VITALS: BP 117/65
[2017-01-28] MEDS: IPRATROPIUM BROMIDE 0.5 MG/2.5 ML NEB SOLUTION NEB SCH ×4 (01:01→20:00)
[2017-01-28] MEDS: ALBUTEROL SULFATE 2.5 MG/0.5 ML NEB SOLUTION NEB SCH ×4 (01:01→20:00)
[2017-01-28] MEDS: ONDANSETRON HCL 4 MG/2 ML VIAL IVP PRN ×3 (01:30→21:48)
[2017-01-28 05:29] VITALS: BP 118/71
[2017-01-28] MEDS: HYDROmorphone 2 MG/ML SYRINGE IVP PRN ×4 (05:31→20:36)
[2017-01-28 06:31] LABS: BASOPHILS % (AUTO) 0.3 % (0.0-2.0); EOSINOPHILS % (AUTO) 3.6 % (1.0-6.0); HEMATOCRIT 27.1 % (36-46); HEMOGLOBIN 8.4 g/dL (12.0-16.0); LYMPHOCYTES # (AUTO) 2.1 K/uL (1.0-4.8); LYMPHOCYTES % (AUTO) 17.9 % (22.0-44.0); MEAN CORPUSCULAR HEMOGLOBIN 24.8 pg (26.0-34.0); MEAN CORPUSCULAR VOLUME 80 fL (80-100); MONOCYTES # (AUTO) 0.9 K/uL (0.1-1.0); MONOCYTES % (AUTO) 7.6 % (2.0-9.0); NEUTROPHILS # (AUTO) 8.3 K/uL (1.8-7.7); NEUTROPHILS % (AUTO) 70.6 % (40.0-70.0); PLATELET COUNT (AUTO) 277 K/uL (150-450); RED BLOOD CELL COUNT(AUTO) 3.39 MIL/uL (4.00-5.20); RED CELL DISTRIBUTION WIDTH 21.6 % (11.5-14.5); WHITE BLOOD COUNT (AUTO) 11.8 K/uL (4.5-11.0)
[2017-01-28 06:47] LABS: ANION GAP 7 mmol/L (8-16); CALCIUM, TOTAL 7.7 mg/dL (8.8-10.5); CARBON DIOXIDE 29 mmol/L (22-29); CHLORIDE 102 mmol/L (98-107); CREATININE 0.81 mg/dL (0.60-1.30); GLOMERULAR FILTR. RATE CALC > 60 mL/min (>60); POTASSIUM 3.9 mmol/L (3.5-5.1); SODIUM SERUM 138 mmol/L (136-145); UREA NITROGEN, BLOOD 10 mg/dL (7-18)
[2017-01-28] MEDS: BECLOMETHASONE DIPR 80 MCG/PUFF 8.7 GM INHALER IH SCH (08:05)
[2017-01-28] MEDS: DILTIAZEM HCL CD 240 MG ER CAPSULE PO SCH (08:05)
[2017-01-28] MEDS: CARISOPRODOL 350 MG TABLET PO SCH ×4 (08:05→23:19)
[2017-01-28] MEDS: SUCRALFATE 1 GM TABLET PO SCH ×3 (08:05→20:35)
[2017-01-28] MEDS: PANTOPRAZOLE SODIUM 40 MG DR TABLET PO SCH (08:05)
[2017-01-28] MEDS: BETHANECHOL CHLORIDE 25 MG TABLET PO SCH ×2 (08:06→20:35)
[2017-01-28] MEDS: TOPIRAMATE 25 MG TABLET PO SCH (08:06)
[2017-01-28 08:14] VITALS: BP 103/72
[2017-01-28] MEDS: CefoTEtan DISOD 1 GM/DEXTROSE 50 ML IV SCH ×2 (10:57→21:48)
[2017-01-28] MEDS: MONTELUKAST SODIUM 10 MG TABLET PO SCH (10:59)
[2017-01-28 11:06] LABS: RBC MORPHOLOGY COMMENT ABNORMAL RBC MORPH
[2017-01-28 11:19] VITALS: BP 120/69
[2017-01-28] MEDS: POTASSIUM CHL 20 MEQ/D5-0.45NS 1,000 ML IV SCH (15:08)
[2017-01-28 15:40] VITALS: BP 101/60
[2017-01-28 19:50] VITALS: BP 104/59
[2017-01-28] MEDS: AMITRIPTYLINE HCL 75 MG TABLET PO SCH (20:36)
[2017-01-28] MEDS ORDERED: 0.9% SODIUM CHLORIDE 5 ML NEB SOLUTION NEB ONE (23:37)
[2017-01-29 00:10] VITALS: BP 115/60
[2017-01-29] MEDS: HYDROmorphone 2 MG/ML SYRINGE IVP PRN ×5 (00:16→22:06)
[2017-01-29] MEDS: ALBUTEROL SULFATE 2.5 MG/0.5 ML NEB SOLUTION NEB SCH ×4 (03:04→20:00)
[2017-01-29] MEDS: IPRATROPIUM BROMIDE 0.5 MG/2.5 ML NEB SOLUTION NEB SCH ×4 (03:04→20:00)
[2017-01-29 04:34] VITALS: BP 127/75
[2017-01-29] MEDS: POTASSIUM CHL 20 MEQ/D5-0.45NS 1,000 ML IV SCH ×2 (06:14→22:06)
[2017-01-29 07:14] LABS: BASOPHILS % (AUTO) 0.5 % (0.0-2.0); EOSINOPHILS % (AUTO) 1.4 % (1.0-6.0); HEMATOCRIT 28.1 % (36-46); HEMOGLOBIN 8.9 g/dL (12.0-16.0); LYMPHOCYTES # (AUTO) 1.3 K/uL (1.0-4.8); MEAN CORPUSCULAR HEMOGLOBIN 24.9 pg (26.0-34.0); MEAN CORPUSCULAR HGB CONC 31.6 G/dL (31.0-37.0); MEAN CORPUSCULAR VOLUME 79 fL (80-100); MONOCYTES # (AUTO) 0.7 K/uL (0.1-1.0); MONOCYTES % (AUTO) 4.8 % (2.0-9.0); NEUTROPHILS % (AUTO) 84.3 % (40.0-70.0); PLATELET COUNT (AUTO) 329 K/uL (150-450); RED BLOOD CELL COUNT(AUTO) 3.57 MIL/uL (4.00-5.20); RED CELL DISTRIBUTION WIDTH 21.1 % (11.5-14.5); WHITE BLOOD COUNT (AUTO) 14.2 K/uL (4.5-11.0)
[2017-01-29 07:30] LABS: ANION GAP 9 mmol/L (8-16); CARBON DIOXIDE 28 mmol/L (22-29); CHLORIDE 99 mmol/L (98-107); POTASSIUM 4.2 mmol/L (3.5-5.1); SODIUM SERUM 136 mmol/L (136-145)
[2017-01-29 07:31] LABS: CALCIUM, TOTAL 7.6 mg/dL (8.8-10.5); CREATININE 0.91 mg/dL (0.60-1.30); GLOMERULAR FILTR. RATE CALC > 60 mL/min (>60); UREA NITROGEN, BLOOD 9 mg/dL (7-18)
[2017-01-29 07:34] VITALS: BP 120/74
[2017-01-29] MEDS: CARISOPRODOL 350 MG TABLET PO SCH ×2 (08:00→16:00)
[2017-01-29] MEDS: PANTOPRAZOLE SODIUM 40 MG DR TABLET PO SCH (08:06)
[2017-01-29] MEDS: ONDANSETRON HCL 4 MG/2 ML VIAL IVP PRN ×2 (08:06→17:58)
[2017-01-29] MEDS: BECLOMETHASONE DIPR 80 MCG/PUFF 8.7 GM INHALER IH SCH (08:06)
[2017-01-29] MEDS: GABAPENTIN 300 MG CAPSULE PO SCH ×2 (08:06→17:50)
[2017-01-29] MEDS: SUCRALFATE 1 GM TABLET PO SCH ×3 (08:09→22:03)
[2017-01-29] MEDS: BETHANECHOL CHLORIDE 25 MG TABLET PO SCH ×2 (08:09→22:03)
[2017-01-29] MEDS: TOPIRAMATE 25 MG TABLET PO SCH (08:09)
[2017-01-29] MEDS: HEPARIN SODIUM,PORCINE 5,000 UNITS/ML VIAL SQ SCH ×2 (08:09→17:51)
[2017-01-29] MEDS: MONTELUKAST SODIUM 10 MG TABLET PO SCH (08:10)
[2017-01-29] MEDS: DILTIAZEM HCL CD 240 MG ER CAPSULE PO SCH (08:10)
[2017-01-29 11:30] VITALS: BP 124/68
[2017-01-29] MEDS: CefoTEtan DISOD 1 GM/DEXTROSE 50 ML IV SCH ×2 (12:49→22:05)
[2017-01-29 15:53] VITALS: BP 112/73
[2017-01-29 19:19] VITALS: BP 117/62
[2017-01-29] MEDS: AMITRIPTYLINE HCL 75 MG TABLET PO SCH (22:04)
[2017-01-30] MEDS: GABAPENTIN 300 MG CAPSULE PO SCH ×3 (00:37→16:00)
[2017-01-30] MEDS: HEPARIN SODIUM,PORCINE 5,000 UNITS/ML VIAL SQ SCH ×3 (00:37→16:21)
[2017-01-30] MEDS: ONDANSETRON HCL 4 MG/2 ML VIAL IVP PRN (00:38)
[2017-01-30] MEDS: ALBUTEROL SULFATE 2.5 MG/0.5 ML NEB SOLUTION NEB SCH ×3 (02:00→14:29)
[2017-01-30] MEDS: IPRATROPIUM BROMIDE 0.5 MG/2.5 ML NEB SOLUTION NEB SCH ×3 (02:00→14:29)
[2017-01-30] MEDS: HYDROmorphone 2 MG/ML SYRINGE IVP PRN ×3 (02:10→12:51)
[2017-01-30 04:48] VITALS: BP 118/71
[2017-01-30 07:50] VITALS: BP 100/56
[2017-01-30] MEDS ORDERED: ASPIRIN 81 MG CHEWABLE TABLET PO SCH (08:00)
[2017-01-30] MEDS: CARISOPRODOL 350 MG TABLET PO SCH ×3 (08:00→16:00)
[2017-01-30] MEDS: PANTOPRAZOLE SODIUM 40 MG DR TABLET PO SCH (08:05)
[2017-01-30] MEDS: BETHANECHOL CHLORIDE 25 MG TABLET PO SCH (08:06)
[2017-01-30] MEDS: BECLOMETHASONE DIPR 80 MCG/PUFF 8.7 GM INHALER IH SCH (08:06)
[2017-01-30] MEDS: TOPIRAMATE 25 MG TABLET PO SCH (08:07)
[2017-01-30] MEDS: MONTELUKAST SODIUM 10 MG TABLET PO SCH (08:07)
[2017-01-30] MEDS: SUCRALFATE 1 GM TABLET PO SCH ×2 (08:07→16:00)
[2017-01-30 08:38] LABS: BASOPHILS % (AUTO) 0.3 % (0.0-2.0); EOSINOPHILS % (AUTO) 3.1 % (1.0-6.0); HEMATOCRIT 29.2 % (36-46); HEMOGLOBIN 9.2 g/dL (12.0-16.0); LYMPHOCYTES # (AUTO) 1.6 K/uL (1.0-4.8); MEAN CORPUSCULAR HEMOGLOBIN 24.9 pg (26.0-34.0); MEAN CORPUSCULAR HGB CONC 31.4 G/dL (31.0-37.0); MEAN CORPUSCULAR VOLUME 79 fL (80-100); MONOCYTES # (AUTO) 0.7 K/uL (0.1-1.0); MONOCYTES % (AUTO) 5.6 % (2.0-9.0); PLATELET COUNT (AUTO) 384 K/uL (150-450); RED BLOOD CELL COUNT(AUTO) 3.69 MIL/uL (4.00-5.20); RED CELL DISTRIBUTION WIDTH 20.5 % (11.5-14.5); WHITE BLOOD COUNT (AUTO) 11.7 K/uL (4.5-11.0)
[2017-01-30] MEDS: DILTIAZEM HCL CD 240 MG ER CAPSULE PO SCH (09:00)
[2017-01-30] MEDS: CefoTEtan DISOD 1 GM/DEXTROSE 50 ML IV SCH (09:09)
[2017-01-30 09:51] LABS: ANION GAP 8 mmol/L (8-16); CALCIUM, TOTAL 8.1 mg/dL (8.8-10.5); CARBON DIOXIDE 29 mmol/L (22-29); CHLORIDE 101 mmol/L (98-107); CREATININE 0.76 mg/dL (0.60-1.30); GLOMERULAR FILTR. RATE CALC > 60 mL/min (>60); RBC MORPHOLOGY COMMENT ABNORMAL RBC MORPH; SODIUM SERUM 138 mmol/L (136-145); UREA NITROGEN, BLOOD 5 mg/dL (7-18)
[2017-01-30 11:27] VITALS: BP 98/50
[2017-01-30 12:49] VITALS: BP 110/70
[2017-01-30] MEDS ORDERED: PERCT PO (14:43)
[2017-01-30] MEDS ORDERED: NITR100 PO (14:44)
[2017-01-30 16:56] VITALS: BP 131/62
[2017-01-30] MEDS ORDERED: NITROFURANTOIN/NITROFURAN MAC 100 MG CAPSULE [MACROBID] PO SCH (18:00)
[2017-01-30 20:47] LABS: GLUCOSE,POINT OF CARE 88 MG/DL (70-110)
== END 2017-01-30 18:45 | disposition home or self-care (01) | DRG 720 ==
LOC: EMS 13:46 → 6N 19:47
PROVIDERS: ADMIT Hospitalist; ATTEND Hospitalist
PROC: 05HD33Z Insertion of Infusion Device into Right Cephalic Vein, Percutaneous Approach (ICD-10-PCS; principal; 2017-01-27)
PROC: 5A09457 Assistance with Respiratory Ventilation, 24-96 Consecutive Hours, Continuous Positive Airway Pressure (ICD-10-PCS; 2017-01-27)
DX: A41.9 Sepsis, unspecified organism (principal); J96.20 Acute and chronic respiratory failure, unspecified whether with hypoxia or hypercapnia; J84.10 Pulmonary fibrosis, unspecified; J44.1 Chronic obstructive pulmonary disease with (acute) exacerbation; F11.20 Opioid dependence, uncomplicated; N31.9 Neuromuscular dysfunction of bladder, unspecified; Z99.81 Dependence on supplemental oxygen; N39.0 Urinary tract infection, site not specified; R00.0 Tachycardia, unspecified; D64.9 Anemia, unspecified; E11.9 Type 2 diabetes mellitus without complications; N12 Tubulo-interstitial nephritis, not specified as acute or chronic; M79.7 Fibromyalgia; I10 Essential (primary) hypertension; F41.9 Anxiety disorder, unspecified; E66.9 Obesity, unspecified; E78.00 Pure hypercholesterolemia, unspecified; Z16.19 Resistance to other specified beta lactam antibiotics; Z16.24 Resistance to multiple antibiotics; Z83.3 Family history of diabetes mellitus; Z82.49 Family history of ischemic heart disease and other diseases of the circulatory system; Z86.73 Personal history of transient ischemic attack (TIA), and cerebral infarction without residual deficits; Z91.19 Patient's noncompliance with other medical treatment and regimen; Z87.01 Personal history of pneumonia (recurrent); Z90.49 Acquired absence of other specified parts of digestive tract; Z88.1 Allergy status to other antibiotic agents; Z91.011 Allergy to milk products; Z88.8 Allergy status to other drugs, medicaments and biological substances; Z91.048 Other nonmedicinal substance allergy status; Z68.39 Body mass index [BMI] 39.0-39.9, adult
CPT/HCPCS: 70450; 82962; 87081; 93005; 94640; 94644; 94660; 99285; J1170; J1644; J2405; J3480; J3490; J3535

== ENCOUNTER 2017-02-16 12:36 | Emergency (ER) | payer OTHER ==
[~2017-02-16] VITALS: Ht 160 cm; Wt 95.5 kg
[~2017-02-16 12:36] MED LIST changes: +NITR100 PO
[2017-02-16 13:03] LABS: BASOPHILS % (AUTO) 0.3 % (0.0-2.0); EOSINOPHILS % (AUTO) 0.3 % (1.0-6.0); HEMATOCRIT 28.5 % (36-46); HEMOGLOBIN 8.8 g/dL (12.0-16.0); LYMPHOCYTES # (AUTO) 3.1 K/uL (1.0-4.8); LYMPHOCYTES % (AUTO) 21.9 % (22.0-44.0); MEAN CORPUSCULAR HEMOGLOBIN 24.3 pg (26.0-34.0); MEAN CORPUSCULAR HGB CONC 30.9 G/dL (31.0-37.0); MEAN CORPUSCULAR VOLUME 79 fL (80-100); MONOCYTES # (AUTO) 1.2 K/uL (0.1-1.0); MONOCYTES % (AUTO) 8.3 % (2.0-9.0); NEUTROPHILS # (AUTO) 9.7 K/uL (1.8-7.7); NEUTROPHILS % (AUTO) 69.2 % (40.0-70.0); PLATELET COUNT (AUTO) 296 K/uL (150-450); RED BLOOD CELL COUNT(AUTO) 3.62 MIL/uL (4.00-5.20); RED CELL DISTRIBUTION WIDTH 19.8 % (11.5-14.5)
[2017-02-16 13:15] LABS: ALANINE AMINOTRANSFERASE 42 U/L (12-78); ALBUMIN 3.4 g/dL (3.4-5.0); ANION GAP 12 mmol/L (8-16); ASPARTATE AMINOTRANSFERASE 15 U/L (15-37); BILIRUBIN,TOTAL 0.2 mg/dL (0.1-1.0); CALCIUM, TOTAL 7.9 mg/dL (8.8-10.5); CARBON DIOXIDE 25 mmol/L (22-29); CHLORIDE 104 mmol/L (98-107); CREATININE 0.84 mg/dL (0.60-1.30); GLOMERULAR FILTR. RATE CALC > 60 mL/min (>60); SODIUM SERUM 141 mmol/L (136-145); TOTAL PROTEIN, SERUM 6.5 g/dL (6.4-8.2); UREA NITROGEN, BLOOD 11 mg/dL (7-18)
[2017-02-16 13:19] LABS: POTASSIUM 2.9 mmol/L (3.5-5.1)
[2017-02-16 13:23] LABS: RBC MORPHOLOGY COMMENT ABNORMAL RBC MORPH
[2017-02-16] MEDS ORDERED: POTASSIUM CHLORIDE 20 MEQ ER TABLET PO ONE (13:30)
[2017-02-16] MEDS ORDERED: SODIUM CHLORIDE 0.9% 1,000 ML IV ONE (13:53)
[2017-02-16] MEDS: POTASSIUM CHL 10 MEQ/WATER 50 ML IV SCH ×2 (13:54→16:15)
[2017-02-16] MEDS ORDERED: IPRATROPIUM BROMIDE 0.5 MG/2.5 ML NEB SOLUTION NEB ONE (14:15)
[2017-02-16] MEDS ORDERED: ALBUTEROL SULFATE 2.5 MG/0.5 ML NEB SOLUTION NEB ONE (14:15)
[2017-02-16 14:34] LABS: PHOSPHORUS 3.2 mg/dL (2.5-4.9)
[2017-02-16] MEDS ORDERED: MethylPREDNISolone SOD SUCC 125 MG/2 ML VIAL IVP ONE (14:45)
[2017-02-16] MEDS ORDERED: ASPIRIN 81 MG CHEWABLE TABLET PO ONE (14:45)
[2017-02-16] MEDS ORDERED: ONDANSETRON HCL 4 MG/2 ML VIAL IVP ONE (14:45)
[2017-02-16] MEDS ORDERED: MORPHINE SULFATE 4 MG/ML SYRINGE IVP ONE (14:45)
[2017-02-16] MEDS ORDERED: MAGNESIUM SULFATE 2 GM in DEXTROSE 5%-WATER 50 ML IV ONE (16:00)
[2017-02-16 16:01] LABS: APPEARANCE,URINE CLEAR (CLEAR); GLUCOSE, URINE (UA) NEGATIVE (NEGATIVE); KETONES,URINE NEGATIVE (NEGATIVE); LEUKOCYTE ESTERASE ,URINE NEGATIVE (NEGATIVE); OCCULT BLOOD,URINE NEGATIVE (NEGATIVE); PROTEIN,URINE NEGATIVE (NEGATIVE)
[2017-02-16 16:59] LABS: ADD UA MICROSCOPIC NO
[2017-02-16 19:11] VITALS: BP 120/68
== END 2017-02-16 19:12 | disposition home or self-care (01) ==
LOC: EMS 12:38
DX: J44.1 Chronic obstructive pulmonary disease with (acute) exacerbation (principal); J45.909 Unspecified asthma, uncomplicated; G89.4 Chronic pain syndrome; E87.6 Hypokalemia; F41.9 Anxiety disorder, unspecified; E78.00 Pure hypercholesterolemia, unspecified; I10 Essential (primary) hypertension; G43.909 Migraine, unspecified, not intractable, without status migrainosus; Z90.49 Acquired absence of other specified parts of digestive tract; Z86.73 Personal history of transient ischemic attack (TIA), and cerebral infarction without residual deficits; Z88.1 Allergy status to other antibiotic agents; Z91.011 Allergy to milk products; Z79.899 Other long term (current) drug therapy
CPT/HCPCS: 36415; 51701; 71010; 80053; 81003; 83690; 83735; 83880; 84100; 84484; 84703; 85025; 93005; 96361; 96365; 96375; 99285; J2270; J2405; J2930; J3475; J3480; J7030; J7060; J7613

== ENCOUNTER 2017-02-23 11:27 | Inpatient (IN) | payer OTHER ==
[~2017-02-23] VITALS: Ht 160 cm; Wt 104.2 kg
[2017-02-23] MEDS ORDERED: LEVALBUTEROL HCL 1.25 MG/0.5 ML NEB SOLUTION NEB ONE ×2 (12:15→14:29)
[2017-02-23] MEDS ORDERED: IPRATROPIUM BROMIDE 0.5 MG/2.5 ML NEB SOLUTION NEB ONE ×3 (12:15→17:00)
[2017-02-23 12:32] LABS: BASOPHILS % (AUTO) 0.3 % (0.0-2.0); EOSINOPHILS % (AUTO) 1.8 % (1.0-6.0); HEMATOCRIT 31.3 % (36-46); HEMOGLOBIN 9.7 g/dL (12.0-16.0); LYMPHOCYTES # (AUTO) 2.5 K/uL (1.0-4.8); LYMPHOCYTES % (AUTO) 17.8 % (22.0-44.0); MEAN CORPUSCULAR HEMOGLOBIN 24.5 pg (26.0-34.0); MEAN CORPUSCULAR HGB CONC 31.1 G/dL (31.0-37.0); MEAN CORPUSCULAR VOLUME 79 fL (80-100); MONOCYTES # (AUTO) 1.1 K/uL (0.1-1.0); MONOCYTES % (AUTO) 7.5 % (2.0-9.0); NEUTROPHILS # (AUTO) 10.3 K/uL (1.8-7.7); NEUTROPHILS % (AUTO) 72.6 % (40.0-70.0); PLATELET COUNT (AUTO) 342 K/uL (150-450); RED BLOOD CELL COUNT(AUTO) 3.98 MIL/uL (4.00-5.20); RED CELL DISTRIBUTION WIDTH 19.3 % (11.5-14.5); WHITE BLOOD COUNT (AUTO) 14.2 K/uL (4.5-11.0)
[2017-02-23 12:38] LABS: RBC MORPHOLOGY COMMENT ABNORMAL RBC MORPH
[2017-02-23 12:49] LABS: ALANINE AMINOTRANSFERASE 40 U/L (12-78); ALBUMIN 3.3 g/dL (3.4-5.0); ANION GAP 8 mmol/L (8-16); ASPARTATE AMINOTRANSFERASE 18 U/L (15-37); BILIRUBIN,TOTAL 0.2 mg/dL (0.1-1.0); CALCIUM, TOTAL 8.6 mg/dL (8.8-10.5); CARBON DIOXIDE 29 mmol/L (22-29); CHLORIDE 101 mmol/L (98-107); CREATININE 0.84 mg/dL (0.60-1.30); GLOMERULAR FILTR. RATE CALC > 60 mL/min (>60); SODIUM SERUM 138 mmol/L (136-145); TOTAL PROTEIN, SERUM 6.8 g/dL (6.4-8.2); UREA NITROGEN, BLOOD 11 mg/dL (7-18)
[2017-02-23] MEDS ORDERED: 0.9% SODIUM CHLORIDE 5 ML NEB SOLUTION NEB ONE ×3 (12:49→17:25)
[2017-02-23 13:03] LABS: B-TYPE NATRIURETIC PEPTIDE < 5 pg/mL (0-100)
[2017-02-23] MEDS ORDERED: HYDROCODONE/ACETAMINOPHEN 5-325 MG TABLET PO ONE (15:30)
[2017-02-23] MEDS ORDERED: MethylPREDNISolone SOD SUCC 125 MG/2 ML VIAL IVP ONE (15:30)
[2017-02-23] MEDS ORDERED: POTASSIUM CHLORIDE 20 MEQ ER TABLET PO ONE (16:15)
[2017-02-23] MEDS ORDERED: ONDANSETRON HCL 4 MG/2 ML VIAL IVP ONE ×2 (16:30→19:30)
[2017-02-23] MEDS ORDERED: ALBUTEROL SULFATE 5 MG/ML 20 ML NEB SOLN [BULK] NEB ONE (17:00)
[2017-02-23] MEDS ORDERED: CefTRIAXone 1 GM/DEXTROSE 50 ML IV ONE (17:00)
[2017-02-23] MEDS ORDERED: ACETAMINOPHEN 325 MG TABLET PO PRN (17:15)
[2017-02-23] MEDS ORDERED: 0.9% SODIUM CHLORIDE 10 ML SYRINGE IVP PRN (17:15)
[2017-02-23] MEDS ORDERED: MORPHINE SULFATE 4 MG/ML SYRINGE IVP ONE (19:30)
[2017-02-23 21:45] VITALS: BP 108/56
[2017-02-23 23:00] VITALS: BP 142/69
[2017-02-23] MEDS ORDERED: GuaiFENesin/D-METHORPHAN/PHENYLEPH 5 ML LIQUID ORAL.SYG PO PRN (23:30)
[2017-02-23] MEDS ORDERED: ALPRAZolam 1 MG TABLET PO PRN (23:30)
[2017-02-23 23:40] VITALS: BP 122/63
[2017-02-24] VITALS (7 sets, daily range): BP systolic 107–136; BP diastolic 56–89
[2017-02-24] MEDS: CARISOPRODOL 350 MG TABLET PO SCH ×3 (00:25→16:55)
[2017-02-24] MEDS: GABAPENTIN 300 MG CAPSULE PO SCH ×3 (00:26→16:55)
[2017-02-24] MEDS: BETHANECHOL CHLORIDE 25 MG TABLET PO SCH ×3 (00:26→20:19)
[2017-02-24] MEDS: OxyCODONE HCL/ACETAMINOPHEN 5-325 MG TABLET PO PRN ×3 (01:18→20:19)
[2017-02-24] MEDS ORDERED: 0.9% SODIUM CHLORIDE 10 ML SYRINGE IVP PRN (06:30)
[2017-02-24] MEDS ORDERED: ALBUTEROL SULFATE 2.5 MG/0.5 ML NEB SOLUTION NEB PRN (06:45)
[2017-02-24 06:50] LABS: HEMATOCRIT 27.1 % (36-46); HEMOGLOBIN 8.7 g/dL (12.0-16.0); MEAN CORPUSCULAR HEMOGLOBIN 24.9 pg (26.0-34.0); MEAN CORPUSCULAR HGB CONC 31.9 G/dL (31.0-37.0); MEAN CORPUSCULAR VOLUME 78 fL (80-100); PLATELET COUNT (AUTO) 315 K/uL (150-450); RED BLOOD CELL COUNT(AUTO) 3.48 MIL/uL (4.00-5.20); WHITE BLOOD COUNT (AUTO) 17.2 K/uL (4.5-11.0)
[2017-02-24 07:01] LABS: ANION GAP 11 mmol/L (8-16); CALCIUM, TOTAL 8.8 mg/dL (8.8-10.5); CARBON DIOXIDE 24 mmol/L (22-29); CHLORIDE 102 mmol/L (98-107); CREATININE 0.83 mg/dL (0.60-1.30); GLOMERULAR FILTR. RATE CALC > 60 mL/min (>60); POTASSIUM 4.1 mmol/L (3.5-5.1); SODIUM SERUM 137 mmol/L (136-145); UREA NITROGEN, BLOOD 9 mg/dL (7-18)
[2017-02-24] MEDS: IPRATROPIUM BROMIDE 0.5 MG/2.5 ML NEB SOLUTION NEB SCH ×3 (08:00→19:57)
[2017-02-24] MEDS: ALBUTEROL SULFATE 2.5 MG/0.5 ML NEB SOLUTION NEB SCH ×3 (08:00→19:56)
[2017-02-24] MEDS: TIOTROPIUM BROMIDE 18 MCG/INH HANDIHALER [5] IH SCH (08:21)
[2017-02-24] MEDS: BECLOMETHASONE DIPR 80 MCG/PUFF 8.7 GM INHALER IH SCH (08:21)
[2017-02-24] MEDS: BUDESONIDE/FORMOTEROL FUMARATE 160-4.5 MCG/PUFF 6.9 GM INHALER IH SCH ×2 (08:21→22:41)
[2017-02-24] MEDS: MethylPREDNISolone SOD SUCC 125 MG/2 ML VIAL IVP SCH ×2 (08:22→16:55)
[2017-02-24] MEDS: PANTOPRAZOLE SODIUM 40 MG/VIAL IVP SCH (08:22)
[2017-02-24] MEDS ORDERED: FLUCONAZOLE 200 MG TABLET PO SCH (09:00)
[2017-02-24] MEDS ORDERED: OMEPRAZOLE 20 MG CAPSULE PO SCH (09:00)
[2017-02-24 09:45] LABS: BAND NEUTROPHILS % (MANUAL) 6 % (1-5); LYMPHOCYTES % (MANUAL) 7 % (22-44); MYELOCYTES % 2 % (0-0); TOTAL CELLS COUNTED 100
[2017-02-24 09:46] LABS: RBC MORPHOLOGY COMMENT ABNORMAL R
[2017-02-24] MEDS: DILTIAZEM HCL CD 240 MG ER CAPSULE PO SCH (10:00)
[2017-02-24] MEDS: MONTELUKAST SODIUM 10 MG TABLET PO SCH (10:00)
[2017-02-24] MEDS: TOPIRAMATE 25 MG TABLET PO SCH (10:00)
[2017-02-24] MEDS: SUCRALFATE 1 GM TABLET PO SCH ×3 (10:00→20:20)
[2017-02-24] MEDS: SUMAtriptan SUCCINATE 25 MG TABLET PO PRN (10:02)
[2017-02-24] MEDS ORDERED: IOVERSOL 350 MG/ML 150 ML VIAL ONE (11:51)
[2017-02-24] MEDS ORDERED: SODIUM CHLORIDE 0.9% 100 ML ONE (11:51)
[2017-02-24] MEDS ORDERED: ACETAMINOPHEN 325 MG TABLET PO PRN (13:45)
[2017-02-24 14:32] LABS: GLUCOSE,POINT OF CARE 186 MG/DL (70-110)
[2017-02-24] MEDS ORDERED: SODIUM CHLORIDE 0.9% 250 ML IV ONE (16:53)
[2017-02-24] MEDS: CefTRIAXone 1 GM/DEXTROSE 50 ML IV SCH (16:56)
[2017-02-24] MEDS: AMITRIPTYLINE HCL 75 MG TABLET PO SCH (22:29)
[2017-02-24] MEDS: ASPIRIN 81 MG CHEWABLE TABLET PO SCH (22:30)
[2017-02-25] MEDS: CARISOPRODOL 350 MG TABLET PO SCH ×3 (00:32→17:32)
[2017-02-25] MEDS: GABAPENTIN 300 MG CAPSULE PO SCH ×3 (00:32→17:32)
[2017-02-25] MEDS: MethylPREDNISolone SOD SUCC 125 MG/2 ML VIAL IVP SCH ×3 (00:42→17:31)
[2017-02-25] MEDS: IPRATROPIUM BROMIDE 0.5 MG/2.5 ML NEB SOLUTION NEB SCH ×4 (02:18→20:57)
[2017-02-25] MEDS: ALBUTEROL SULFATE 2.5 MG/0.5 ML NEB SOLUTION NEB SCH ×4 (02:19→20:58)
[2017-02-25 05:02] VITALS: BP 111/64
[2017-02-25 07:15] LABS: BASOPHILS # (AUTO) 0.01 K/uL (0.00-0.20); BASOPHILS % (AUTO) 0.1 % (0.0-2.0); EOSINOPHILS # (AUTO) 0.01 K/uL (0.00-0.70); EOSINOPHILS % (AUTO) 0.03 % (1.0-6.0); HEMATOCRIT 28.2 % (36-46); HEMOGLOBIN 8.8 g/dL (12.0-16.0); LYMPHOCYTES % (AUTO) 4.1 % (22.0-44.0); MEAN CORPUSCULAR HEMOGLOBIN 24.6 pg (26.0-34.0); MEAN CORPUSCULAR HGB CONC 31.3 G/dL (31.0-37.0); MEAN CORPUSCULAR VOLUME 79 fL (80-100); MONOCYTES # (AUTO) 0.7 K/uL (0.1-1.0); NEUTROPHILS # (AUTO) 22.1 K/uL (1.8-7.7); PLATELET COUNT (AUTO) 376 K/uL (150-450); RED CELL DISTRIBUTION WIDTH 20.6 % (11.5-14.5); WHITE BLOOD COUNT (AUTO) 23.8 K/uL (4.5-11.0)
[2017-02-25 07:25] LABS: ANION GAP 6 mmol/L (8-16); CALCIUM, TOTAL 8.6 mg/dL (8.8-10.5); CARBON DIOXIDE 28 mmol/L (22-29); CHLORIDE 105 mmol/L (98-107); CREATININE 0.74 mg/dL (0.60-1.30); GLOMERULAR FILTR. RATE CALC > 60 mL/min (>60); POTASSIUM 4.4 mmol/L (3.5-5.1); SODIUM SERUM 139 mmol/L (136-145); UREA NITROGEN, BLOOD 13 mg/dL (7-18)
[2017-02-25 07:39] LABS: NEUTROPHILS % (AUTO) 92.9 % (40.0-70.0)
[2017-02-25 07:40] LABS: RBC MORPHOLOGY COMMENT ABNORMAL RBC MORPH
[2017-02-25 07:55] VITALS: BP 125/66
[2017-02-25] MEDS: PANTOPRAZOLE SODIUM 40 MG/VIAL IVP SCH (08:51)
[2017-02-25] MEDS: DILTIAZEM HCL CD 240 MG ER CAPSULE PO SCH (08:51)
[2017-02-25] MEDS: SUCRALFATE 1 GM TABLET PO SCH ×3 (08:52→20:46)
[2017-02-25] MEDS: TOPIRAMATE 25 MG TABLET PO SCH (08:52)
[2017-02-25] MEDS: BETHANECHOL CHLORIDE 25 MG TABLET PO SCH ×2 (08:52→20:46)
[2017-02-25] MEDS: BUDESONIDE/FORMOTEROL FUMARATE 160-4.5 MCG/PUFF 6.9 GM INHALER IH SCH ×2 (08:53→20:57)
[2017-02-25] MEDS: MONTELUKAST SODIUM 10 MG TABLET PO SCH (08:53)
[2017-02-25] MEDS: BECLOMETHASONE DIPR 80 MCG/PUFF 8.7 GM INHALER IH SCH (08:53)
[2017-02-25] MEDS: TIOTROPIUM BROMIDE 18 MCG/INH HANDIHALER [5] IH SCH (08:53)
[2017-02-25] MEDS: ASPIRIN 81 MG CHEWABLE TABLET PO SCH (08:53)
[2017-02-25] MEDS ORDERED: ASPIRIN 325 MG TABLET PO SCH (09:00)
[2017-02-25 11:48] VITALS: BP 115/64
[2017-02-25] MEDS: OxyCODONE HCL/ACETAMINOPHEN 5-325 MG TABLET PO PRN ×2 (14:54→20:56)
[2017-02-25 15:44] VITALS: BP 120/63
[2017-02-25] MEDS: CefTRIAXone 1 GM/DEXTROSE 50 ML IV SCH (17:31)
[2017-02-25] MEDS: SUMAtriptan SUCCINATE 25 MG TABLET PO PRN (19:31)
[2017-02-25 20:30] VITALS: BP 136/62
[2017-02-26] VITALS (7 sets, daily range): BP systolic 109–124; BP diastolic 55–75
[2017-02-26] MEDS: CARISOPRODOL 350 MG TABLET PO SCH ×4 (00:41→23:09)
[2017-02-26] MEDS: GABAPENTIN 300 MG CAPSULE PO SCH ×4 (00:42→23:09)
[2017-02-26] MEDS: AMITRIPTYLINE HCL 75 MG TABLET PO SCH (00:43)
[2017-02-26] MEDS: MethylPREDNISolone SOD SUCC 125 MG/2 ML VIAL IVP SCH ×4 (00:44→23:08)
[2017-02-26] MEDS: IPRATROPIUM BROMIDE 0.5 MG/2.5 ML NEB SOLUTION NEB SCH ×4 (01:37→20:57)
[2017-02-26] MEDS: ALBUTEROL SULFATE 2.5 MG/0.5 ML NEB SOLUTION NEB SCH ×4 (01:37→20:57)
[2017-02-26] MEDS: OxyCODONE HCL/ACETAMINOPHEN 5-325 MG TABLET PO PRN ×2 (03:57→20:14)
[2017-02-26 06:33] LABS: ANION GAP 9 mmol/L (8-16); CALCIUM, TOTAL 8.7 mg/dL (8.8-10.5); CARBON DIOXIDE 27 mmol/L (22-29); CHLORIDE 103 mmol/L (98-107); CREATININE 0.77 mg/dL (0.60-1.30); GLOMERULAR FILTR. RATE CALC > 60 mL/min (>60); SODIUM SERUM 139 mmol/L (136-145); UREA NITROGEN, BLOOD 20 mg/dL (7-18)
[2017-02-26 07:10] LABS: EOSINOPHILS % (AUTO) 0 % (1.0-6.0); HEMOGLOBIN 8.7 g/dL (12.0-16.0); LYMPHOCYTES # (AUTO) 0.9 K/uL (1.0-4.8); LYMPHOCYTES % (AUTO) 4.2 % (22.0-44.0); MEAN CORPUSCULAR HEMOGLOBIN 24.4 pg (26.0-34.0); MEAN CORPUSCULAR HGB CONC 31.1 G/dL (31.0-37.0); MEAN CORPUSCULAR VOLUME 78 fL (80-100); MONOCYTES # (AUTO) 0.7 K/uL (0.1-1.0); MONOCYTES % (AUTO) 3.3 % (2.0-9.0); NEUTROPHILS # (AUTO) 20.8 K/uL (1.8-7.7); PLATELET COUNT (AUTO) 332 K/uL (150-450); RED BLOOD CELL COUNT(AUTO) 3.57 MIL/uL (4.00-5.20); RED CELL DISTRIBUTION WIDTH 19.9 % (11.5-14.5); WHITE BLOOD COUNT (AUTO) 22.5 K/uL (4.5-11.0)
[2017-02-26 07:12] LABS: NEUTROPHILS % (AUTO) 92.5 % (40.0-70.0)
[2017-02-26] MEDS: PANTOPRAZOLE SODIUM 40 MG/VIAL IVP SCH (08:43)
[2017-02-26] MEDS: BECLOMETHASONE DIPR 80 MCG/PUFF 8.7 GM INHALER IH SCH (08:44)
[2017-02-26] MEDS: BUDESONIDE/FORMOTEROL FUMARATE 160-4.5 MCG/PUFF 6.9 GM INHALER IH SCH ×2 (08:44→20:12)
[2017-02-26] MEDS: TOPIRAMATE 25 MG TABLET PO SCH (08:45)
[2017-02-26] MEDS: SUCRALFATE 1 GM TABLET PO SCH ×3 (08:46→20:13)
[2017-02-26] MEDS: TIOTROPIUM BROMIDE 18 MCG/INH HANDIHALER [5] IH SCH (08:46)
[2017-02-26] MEDS: ASPIRIN 81 MG CHEWABLE TABLET PO SCH (08:46)
[2017-02-26] MEDS: MONTELUKAST SODIUM 10 MG TABLET PO SCH (08:46)
[2017-02-26] MEDS: DILTIAZEM HCL CD 240 MG ER CAPSULE PO SCH (08:46)
[2017-02-26] MEDS: BETHANECHOL CHLORIDE 25 MG TABLET PO SCH ×2 (08:46→20:13)
[2017-02-26] MEDS: SUMAtriptan SUCCINATE 25 MG TABLET PO PRN (08:49)
[2017-02-26] MEDS: MUPIROCIN CALCIUM 2% 22 GM OINTMENT NASAL SCH ×2 (14:11→20:14)
[2017-02-26] MEDS: MORPHINE SULFATE 2 MG/ML SYRINGE IVP PRN ×2 (15:01→23:11)
[2017-02-26] MEDS: CefTRIAXone 1 GM/DEXTROSE 50 ML IV SCH (16:45)
[2017-02-26] MEDS: ASPIRIN 325 MG TABLET PO SCH (20:13)
[2017-02-26 20:15] LABS: APPEARANCE,URINE CLOUDY (CLEAR); GLUCOSE, URINE (UA) NEGATIVE (NEGATIVE); KETONES,URINE NEGATIVE (NEGATIVE); LEUKOCYTE ESTERASE ,URINE NEGATIVE (NEGATIVE); OCCULT BLOOD,URINE NEGATIVE (NEGATIVE); PROTEIN,URINE NEGATIVE (NEGATIVE)
[2017-02-26 20:27] LABS: RBC,URINE 0-2 /HPF (0-2); WBC,URINE 0-2 /HPF (0-5)
[2017-02-26 20:28] LABS: SQUAMOUS EPITHELIAL CELL,UR Few /LPF (None Seen)
[2017-02-27] MEDS: AMITRIPTYLINE HCL 75 MG TABLET PO SCH (00:40)
[2017-02-27] MEDS: LORazepam 0.5 MG TABLET PO PRN (00:44)
[2017-02-27] MEDS: OxyCODONE HCL/ACETAMINOPHEN 5-325 MG TABLET PO PRN ×3 (02:29→22:30)
[2017-02-27] MEDS: IPRATROPIUM BROMIDE 0.5 MG/2.5 ML NEB SOLUTION NEB SCH ×4 (02:32→20:13)
[2017-02-27] MEDS: ALBUTEROL SULFATE 2.5 MG/0.5 ML NEB SOLUTION NEB SCH ×4 (02:33→20:13)
[2017-02-27 05:45] VITALS: BP 101/55
[2017-02-27 06:58] LABS: ANION GAP 9 mmol/L (8-16); CALCIUM, TOTAL 8.5 mg/dL (8.8-10.5); CARBON DIOXIDE 26 mmol/L (22-29); CHLORIDE 106 mmol/L (98-107); CREATININE 0.79 mg/dL (0.60-1.30); GLOMERULAR FILTR. RATE CALC > 60 mL/min (>60); POTASSIUM 3.8 mmol/L (3.5-5.1); SODIUM SERUM 141 mmol/L (136-145); UREA NITROGEN, BLOOD 24 mg/dL (7-18)
[2017-02-27 07:24] VITALS: BP 108/58
[2017-02-27 08:41] LABS: EOSINOPHILS % (AUTO) 0 % (1.0-6.0); HEMOGLOBIN 8.2 g/dL (12.0-16.0); LYMPHOCYTES % (AUTO) 4.8 % (22.0-44.0); MEAN CORPUSCULAR HEMOGLOBIN 23.9 pg (26.0-34.0); MEAN CORPUSCULAR HGB CONC 30.5 G/dL (31.0-37.0); MEAN CORPUSCULAR VOLUME 78 fL (80-100); MONOCYTES # (AUTO) 0.9 K/uL (0.1-1.0); MONOCYTES % (AUTO) 4.4 % (2.0-9.0); NEUTROPHILS # (AUTO) 18.6 K/uL (1.8-7.7); PLATELET COUNT (AUTO) 325 K/uL (150-450); RED BLOOD CELL COUNT(AUTO) 3.44 MIL/uL (4.00-5.20); WHITE BLOOD COUNT (AUTO) 20.4 K/uL (4.5-11.0)
[2017-02-27 08:42] LABS: NEUTROPHILS % (AUTO) 90.8 % (40.0-70.0)
[2017-02-27] MEDS ORDERED: ALENDRONATE SODIUM 35 MG TABLET PO SCH (09:00)
[2017-02-27] MEDS: PANTOPRAZOLE SODIUM 40 MG/VIAL IVP SCH (09:45)
[2017-02-27] MEDS: BUDESONIDE/FORMOTEROL FUMARATE 160-4.5 MCG/PUFF 6.9 GM INHALER IH SCH ×2 (09:46→20:06)
[2017-02-27] MEDS: BECLOMETHASONE DIPR 80 MCG/PUFF 8.7 GM INHALER IH SCH (09:46)
[2017-02-27] MEDS: MethylPREDNISolone SOD SUCC 125 MG/2 ML VIAL IVP SCH (09:46)
[2017-02-27] MEDS: TIOTROPIUM BROMIDE 18 MCG/INH HANDIHALER [5] IH SCH (09:47)
[2017-02-27] MEDS: MUPIROCIN CALCIUM 2% 22 GM OINTMENT NASAL SCH ×2 (09:55→20:06)
[2017-02-27 10:00] LABS: RBC MORPHOLOGY COMMENT ABNORMAL RBC MORPH
[2017-02-27] MEDS: CARISOPRODOL 350 MG TABLET PO SCH ×2 (10:06→16:17)
[2017-02-27] MEDS: TOPIRAMATE 25 MG TABLET PO SCH (10:06)
[2017-02-27] MEDS: MONTELUKAST SODIUM 10 MG TABLET PO SCH (10:06)
[2017-02-27] MEDS: GABAPENTIN 300 MG CAPSULE PO SCH ×2 (10:06→16:18)
[2017-02-27] MEDS: DILTIAZEM HCL CD 240 MG ER CAPSULE PO SCH (10:06)
[2017-02-27] MEDS: SUCRALFATE 1 GM TABLET PO SCH ×3 (10:06→22:30)
[2017-02-27] MEDS: BETHANECHOL CHLORIDE 25 MG TABLET PO SCH ×2 (10:07→20:04)
[2017-02-27] MEDS: MORPHINE SULFATE 2 MG/ML SYRINGE IVP PRN ×2 (10:19→20:04)
[2017-02-27 11:30] VITALS: BP 128/74
[2017-02-27 15:22] VITALS: BP 119/52
[2017-02-27] MEDS: MethylPREDNISolone SOD SUCC 40 MG/ML VIAL IVP SCH (16:17)
[2017-02-27] MEDS: CefTRIAXone 1 GM/DEXTROSE 50 ML IV SCH (16:23)
[2017-02-27 19:39] VITALS: BP 111/64
[2017-02-27] MEDS: ASPIRIN 325 MG TABLET PO SCH (20:03)
[2017-02-28] VITALS (8 sets, daily range): BP systolic 111–140; BP diastolic 58–75
[2017-02-28] MEDS: LORazepam 0.5 MG TABLET PO PRN (00:41)
[2017-02-28] MEDS: CARISOPRODOL 350 MG TABLET PO SCH ×5 (00:41→23:42)
[2017-02-28] MEDS: MethylPREDNISolone SOD SUCC 40 MG/ML VIAL IVP SCH ×2 (00:42→09:29)
[2017-02-28] MEDS: GABAPENTIN 300 MG CAPSULE PO SCH ×5 (00:42→23:41)
[2017-02-28] MEDS: AMITRIPTYLINE HCL 75 MG TABLET PO SCH ×2 (00:43→23:41)
[2017-02-28] MEDS: ALBUTEROL SULFATE 2.5 MG/0.5 ML NEB SOLUTION NEB SCH ×4 (02:25→19:40)
[2017-02-28] MEDS: IPRATROPIUM BROMIDE 0.5 MG/2.5 ML NEB SOLUTION NEB SCH ×4 (02:25→19:40)
[2017-02-28] MEDS: MORPHINE SULFATE 2 MG/ML SYRINGE IVP PRN ×3 (04:08→21:28)
[2017-02-28] MEDS: DILTIAZEM HCL CD 240 MG ER CAPSULE PO SCH (09:00)
[2017-02-28] MEDS: MONTELUKAST SODIUM 10 MG TABLET PO SCH ×2 (09:00→09:29)
[2017-02-28] MEDS: TOPIRAMATE 25 MG TABLET PO SCH (09:00)
[2017-02-28] MEDS: BETHANECHOL CHLORIDE 25 MG TABLET PO SCH ×3 (09:00→21:25)
[2017-02-28] MEDS: SUCRALFATE 1 GM TABLET PO SCH ×3 (09:00→21:26)
[2017-02-28] MEDS: TIOTROPIUM BROMIDE 18 MCG/INH HANDIHALER [5] IH SCH ×2 (09:00→09:31)
[2017-02-28] MEDS: PANTOPRAZOLE SODIUM 40 MG/VIAL IVP SCH (09:29)
[2017-02-28] MEDS: BUDESONIDE/FORMOTEROL FUMARATE 160-4.5 MCG/PUFF 6.9 GM INHALER IH SCH ×3 (09:30→21:25)
[2017-02-28] MEDS: BECLOMETHASONE DIPR 80 MCG/PUFF 8.7 GM INHALER IH SCH ×2 (09:30→13:17)
[2017-02-28] MEDS: MUPIROCIN CALCIUM 2% 22 GM OINTMENT NASAL SCH ×2 (09:33→21:26)
[2017-02-28] MEDS: CefTRIAXone 1 GM/DEXTROSE 50 ML IV SCH (16:34)
[2017-02-28] MEDS: ASPIRIN 325 MG TABLET PO SCH (21:25)
[2017-02-28] MEDS: SUMAtriptan SUCCINATE 25 MG TABLET PO PRN (23:43)
[2017-03-01] MEDS: ONDANSETRON HCL 4 MG/2 ML VIAL IVP PRN (01:47)
[2017-03-01] MEDS: IPRATROPIUM BROMIDE 0.5 MG/2.5 ML NEB SOLUTION NEB SCH ×4 (02:42→20:35)
[2017-03-01] MEDS: ALBUTEROL SULFATE 2.5 MG/0.5 ML NEB SOLUTION NEB SCH ×4 (02:42→20:36)
[2017-03-01 04:29] VITALS: BP 121/72
[2017-03-01] MEDS ORDERED: MAGNESIUM HYDROXIDE SUSPENSION 30 ML UDCUP PO PRN (05:45)
[2017-03-01 06:27] VITALS: BP 127/77
[2017-03-01] MEDS: MORPHINE SULFATE 2 MG/ML SYRINGE IVP PRN ×3 (06:34→22:56)
[2017-03-01 07:25] LABS: EOSINOPHILS % (AUTO) 0.1 % (1.0-6.0); HEMATOCRIT 28.2 % (36-46); HEMOGLOBIN 8.7 g/dL (12.0-16.0); LYMPHOCYTES # (AUTO) 1.9 K/uL (1.0-4.8); LYMPHOCYTES % (AUTO) 8.8 % (22.0-44.0); MEAN CORPUSCULAR HEMOGLOBIN 24.1 pg (26.0-34.0); MEAN CORPUSCULAR HGB CONC 30.9 G/dL (31.0-37.0); MEAN CORPUSCULAR VOLUME 78 fL (80-100); MONOCYTES # (AUTO) 1.8 K/uL (0.1-1.0); MONOCYTES % (AUTO) 8.1 % (2.0-9.0); NEUTROPHILS # (AUTO) 18.2 K/uL (1.8-7.7); PLATELET COUNT (AUTO) 331 K/uL (150-450); RED BLOOD CELL COUNT(AUTO) 3.61 MIL/uL (4.00-5.20); RED CELL DISTRIBUTION WIDTH 19.1 % (11.5-14.5)
[2017-03-01 07:51] VITALS: BP 120/74
[2017-03-01 08:36] LABS: RBC MORPHOLOGY COMMENT ABNORMAL RBC MORPH
[2017-03-01] MEDS: BISACODYL 10 MG RECTAL RECTAL SUPPOSITORY PR SCH (09:00)
[2017-03-01] MEDS: BECLOMETHASONE DIPR 80 MCG/PUFF 8.7 GM INHALER IH SCH (10:31)
[2017-03-01] MEDS: BUDESONIDE/FORMOTEROL FUMARATE 160-4.5 MCG/PUFF 6.9 GM INHALER IH SCH ×2 (10:32→21:18)
[2017-03-01] MEDS: TIOTROPIUM BROMIDE 18 MCG/INH HANDIHALER [5] IH SCH (10:32)
[2017-03-01] MEDS: MUPIROCIN CALCIUM 2% 22 GM OINTMENT NASAL SCH ×2 (10:32→21:18)
[2017-03-01] MEDS: PredniSONE 20 MG TABLET PO SCH (10:33)
[2017-03-01] MEDS: SUCRALFATE 1 GM TABLET PO SCH ×3 (10:33→21:17)
[2017-03-01] MEDS: CARISOPRODOL 350 MG TABLET PO SCH ×2 (10:34→16:16)
[2017-03-01] MEDS: GABAPENTIN 300 MG CAPSULE PO SCH ×2 (10:34→16:16)
[2017-03-01] MEDS: DILTIAZEM HCL CD 240 MG ER CAPSULE PO SCH (10:34)
[2017-03-01] MEDS: BETHANECHOL CHLORIDE 25 MG TABLET PO SCH ×2 (10:35→21:17)
[2017-03-01] MEDS: TOPIRAMATE 25 MG TABLET PO SCH (10:35)
[2017-03-01] MEDS: PANTOPRAZOLE SODIUM 40 MG/VIAL IVP SCH (10:40)
[2017-03-01] MEDS: MONTELUKAST SODIUM 10 MG TABLET PO SCH (11:46)
[2017-03-01] MEDS: SUMAtriptan SUCCINATE 25 MG TABLET PO PRN (11:48)
[2017-03-01 11:49] VITALS: BP 116/67
[2017-03-01 15:30] VITALS: BP 115/75
[2017-03-01] MEDS ORDERED: SODIUM CHLORIDE 0.9% 250 ML IV ONE (17:16)
[2017-03-01] MEDS: CefTRIAXone 1 GM/DEXTROSE 50 ML IV SCH (17:20)
[2017-03-01 19:57] VITALS: BP 136/76
[2017-03-01] MEDS: ASPIRIN 325 MG TABLET PO SCH (21:17)
[2017-03-01] MEDS: AMITRIPTYLINE HCL 75 MG TABLET PO SCH (21:17)
[2017-03-02] VITALS (8 sets, daily range): BP systolic 107–135; BP diastolic 61–73
[2017-03-02] MEDS: GABAPENTIN 300 MG CAPSULE PO SCH ×3 (01:47→17:30)
[2017-03-02] MEDS: CARISOPRODOL 350 MG TABLET PO SCH ×3 (01:47→17:31)
[2017-03-02] MEDS: ALBUTEROL SULFATE 2.5 MG/0.5 ML NEB SOLUTION NEB SCH ×4 (03:28→19:57)
[2017-03-02] MEDS: IPRATROPIUM BROMIDE 0.5 MG/2.5 ML NEB SOLUTION NEB SCH ×4 (03:28→19:57)
[2017-03-02] MEDS: BUDESONIDE/FORMOTEROL FUMARATE 160-4.5 MCG/PUFF 6.9 GM INHALER IH SCH ×2 (08:41→20:58)
[2017-03-02] MEDS: TIOTROPIUM BROMIDE 18 MCG/INH HANDIHALER [5] IH SCH (08:41)
[2017-03-02] MEDS: BECLOMETHASONE DIPR 80 MCG/PUFF 8.7 GM INHALER IH SCH (08:41)
[2017-03-02] MEDS: PANTOPRAZOLE SODIUM 40 MG/VIAL IVP SCH (08:42)
[2017-03-02] MEDS: SUCRALFATE 1 GM TABLET PO SCH ×3 (08:42→20:59)
[2017-03-02] MEDS: DILTIAZEM HCL CD 240 MG ER CAPSULE PO SCH (08:43)
[2017-03-02] MEDS: PredniSONE 20 MG TABLET PO SCH (08:44)
[2017-03-02] MEDS: MONTELUKAST SODIUM 10 MG TABLET PO SCH (08:44)
[2017-03-02] MEDS: TOPIRAMATE 25 MG TABLET PO SCH (08:45)
[2017-03-02] MEDS: MUPIROCIN CALCIUM 2% 22 GM OINTMENT NASAL SCH ×2 (08:46→20:59)
[2017-03-02] MEDS: BETHANECHOL CHLORIDE 25 MG TABLET PO SCH ×2 (08:46→20:59)
[2017-03-02] MEDS: MORPHINE SULFATE 2 MG/ML SYRINGE IVP PRN ×3 (08:47→21:55)
[2017-03-02] MEDS: BISACODYL 10 MG RECTAL RECTAL SUPPOSITORY PR SCH (09:00)
[2017-03-02] MEDS: ONDANSETRON HCL 4 MG/2 ML VIAL IVP PRN (12:17)
[2017-03-02] MEDS: OxyCODONE HCL/ACETAMINOPHEN 5-325 MG TABLET PO PRN (12:20)
[2017-03-02] MEDS ORDERED: MORPHINE SULFATE 2 MG/ML SYRINGE IVP PRN (14:59)
[2017-03-02] MEDS ORDERED: GADOBUTROL 1 MMOL/ML 10 ML VIAL IVP ONE (16:05)
[2017-03-02] MEDS: CefTRIAXone 1 GM/DEXTROSE 50 ML IV SCH (17:00)
[2017-03-02 20:24] LABS: BASOPHILS % (AUTO) 0.1 % (0.0-2.0); EOSINOPHILS % (AUTO) 0 % (1.0-6.0); HEMATOCRIT 30.5 % (36-46); HEMOGLOBIN 9.6 g/dL (12.0-16.0); LYMPHOCYTES # (AUTO) 1.4 K/uL (1.0-4.8); LYMPHOCYTES % (AUTO) 5.1 % (22.0-44.0); MEAN CORPUSCULAR HEMOGLOBIN 24.2 pg (26.0-34.0); MEAN CORPUSCULAR HGB CONC 31.4 G/dL (31.0-37.0); MEAN CORPUSCULAR VOLUME 77 fL (80-100); MONOCYTES % (AUTO) 3.7 % (2.0-9.0); NEUTROPHILS # (AUTO) 24.4 K/uL (1.8-7.7); PLATELET COUNT (AUTO) 426 K/uL (150-450); RED BLOOD CELL COUNT(AUTO) 3.97 MIL/uL (4.00-5.20); WHITE BLOOD COUNT (AUTO) 26.8 K/uL (4.5-11.0)
[2017-03-02 20:40] LABS: ANION GAP 7 mmol/L (8-16); CALCIUM, TOTAL 8.1 mg/dL (8.8-10.5); CARBON DIOXIDE 27 mmol/L (22-29); CHLORIDE 103 mmol/L (98-107); CREATININE 0.77 mg/dL (0.60-1.30); GLOMERULAR FILTR. RATE CALC > 60 mL/min (>60); POTASSIUM 4.3 mmol/L (3.5-5.1); SODIUM SERUM 137 mmol/L (136-145); UREA NITROGEN, BLOOD 21 mg/dL (7-18)
[2017-03-02 20:42] LABS: NEUTROPHILS % (AUTO) 91.1 % (40.0-70.0); RBC MORPHOLOGY COMMENT ABNORMAL RBC MORPH
[2017-03-02 20:45] LABS: ALANINE AMINOTRANSFERASE 26 U/L (12-78); ASPARTATE AMINOTRANSFERASE 8 U/L (15-37); BILIRUBIN,TOTAL 0.2 mg/dL (0.1-1.0)
[2017-03-02] MEDS: AMITRIPTYLINE HCL 75 MG TABLET PO SCH (20:59)
[2017-03-02] MEDS: ASPIRIN 325 MG TABLET PO SCH (20:59)
[2017-03-03] MEDS: CARISOPRODOL 350 MG TABLET PO SCH ×4 (01:07→23:46)
[2017-03-03] MEDS: GABAPENTIN 300 MG CAPSULE PO SCH ×4 (01:07→23:46)
[2017-03-03] MEDS: ALBUTEROL SULFATE 2.5 MG/0.5 ML NEB SOLUTION NEB SCH ×4 (02:17→19:42)
[2017-03-03] MEDS: IPRATROPIUM BROMIDE 0.5 MG/2.5 ML NEB SOLUTION NEB SCH ×4 (02:19→19:42)
[2017-03-03 05:01] VITALS: BP 117/56
[2017-03-03] MEDS: MORPHINE SULFATE 2 MG/ML SYRINGE IVP PRN ×4 (07:53→22:08)
[2017-03-03 08:20] VITALS: BP 126/65
[2017-03-03] MEDS: BISACODYL 10 MG RECTAL RECTAL SUPPOSITORY PR SCH (09:00)
[2017-03-03] MEDS: PredniSONE 20 MG TABLET PO SCH (10:13)
[2017-03-03] MEDS: MONTELUKAST SODIUM 10 MG TABLET PO SCH (10:13)
[2017-03-03] MEDS: TOPIRAMATE 25 MG TABLET PO SCH (10:14)
[2017-03-03] MEDS: PANTOPRAZOLE SODIUM 40 MG/VIAL IVP SCH (10:14)
[2017-03-03] MEDS: SUCRALFATE 1 GM TABLET PO SCH ×3 (10:14→20:53)
[2017-03-03] MEDS: BETHANECHOL CHLORIDE 25 MG TABLET PO SCH ×2 (10:15→20:54)
[2017-03-03] MEDS: DILTIAZEM HCL CD 240 MG ER CAPSULE PO SCH (10:15)
[2017-03-03] MEDS: BUDESONIDE/FORMOTEROL FUMARATE 160-4.5 MCG/PUFF 6.9 GM INHALER IH SCH ×2 (10:16→20:53)
[2017-03-03] MEDS: BECLOMETHASONE DIPR 80 MCG/PUFF 8.7 GM INHALER IH SCH (10:16)
[2017-03-03] MEDS: TIOTROPIUM BROMIDE 18 MCG/INH HANDIHALER [5] IH SCH (10:16)
[2017-03-03 11:47] VITALS: BP 129/79
[2017-03-03] MEDS: OxyCODONE HCL/ACETAMINOPHEN 5-325 MG TABLET PO PRN (16:05)
[2017-03-03 16:35] VITALS: BP 112/73
[2017-03-03] MEDS: CefTRIAXone 1 GM/DEXTROSE 50 ML IV SCH (17:34)
[2017-03-03 19:56] VITALS: BP 114/72
[2017-03-03] MEDS: ASPIRIN 325 MG TABLET PO SCH (20:53)
[2017-03-03 23:41] VITALS: BP 113/66
[2017-03-03] MEDS: AMITRIPTYLINE HCL 75 MG TABLET PO SCH (23:46)
[2017-03-04] MEDS: ALBUTEROL SULFATE 2.5 MG/0.5 ML NEB SOLUTION NEB SCH ×3 (02:26→13:47)
[2017-03-04] MEDS: IPRATROPIUM BROMIDE 0.5 MG/2.5 ML NEB SOLUTION NEB SCH ×3 (02:26→13:47)
[2017-03-04] MEDS: MORPHINE SULFATE 2 MG/ML SYRINGE IVP PRN ×4 (02:58→18:09)
[2017-03-04 03:59] VITALS: BP 107/66
[2017-03-04 07:35] VITALS: BP 109/60
[2017-03-04] MEDS: CARISOPRODOL 350 MG TABLET PO SCH ×2 (08:00→16:00)
[2017-03-04] MEDS: GABAPENTIN 300 MG CAPSULE PO SCH ×2 (08:10→16:36)
[2017-03-04] MEDS: DILTIAZEM HCL CD 240 MG ER CAPSULE PO SCH (08:11)
[2017-03-04] MEDS: SUCRALFATE 1 GM TABLET PO SCH ×2 (08:11→16:36)
[2017-03-04] MEDS: PANTOPRAZOLE SODIUM 40 MG/VIAL IVP SCH (08:11)
[2017-03-04] MEDS: MONTELUKAST SODIUM 10 MG TABLET PO SCH (08:12)
[2017-03-04] MEDS: TOPIRAMATE 25 MG TABLET PO SCH (08:12)
[2017-03-04] MEDS: BUDESONIDE/FORMOTEROL FUMARATE 160-4.5 MCG/PUFF 6.9 GM INHALER IH SCH (08:12)
[2017-03-04] MEDS: BETHANECHOL CHLORIDE 25 MG TABLET PO SCH (08:12)
[2017-03-04] MEDS: TIOTROPIUM BROMIDE 18 MCG/INH HANDIHALER [5] IH SCH (08:12)
[2017-03-04] MEDS: BECLOMETHASONE DIPR 80 MCG/PUFF 8.7 GM INHALER IH SCH (08:13)
[2017-03-04] MEDS: BISACODYL 10 MG RECTAL RECTAL SUPPOSITORY PR SCH (08:22)
[2017-03-04] MEDS ORDERED: PredniSONE 10 MG TABLET PO SCH (09:00)
[2017-03-04 11:35] VITALS: BP 132/71
[2017-03-04 12:09] LABS: BASOPHILS % (AUTO) 0.1 % (0.0-2.0); EOSINOPHILS % (AUTO) 0.2 % (1.0-6.0); HEMOGLOBIN 8.8 g/dL (12.0-16.0); LYMPHOCYTES # (AUTO) 1.2 K/uL (1.0-4.8); LYMPHOCYTES % (AUTO) 4.6 % (22.0-44.0); MEAN CORPUSCULAR HEMOGLOBIN 23.7 pg (26.0-34.0); MEAN CORPUSCULAR HGB CONC 30.5 G/dL (31.0-37.0); MEAN CORPUSCULAR VOLUME 78 fL (80-100); MONOCYTES % (AUTO) 3.6 % (2.0-9.0); PLATELET COUNT (AUTO) 407 K/uL (150-450); RED BLOOD CELL COUNT(AUTO) 3.73 MIL/uL (4.00-5.20); RED CELL DISTRIBUTION WIDTH 20.1 % (11.5-14.5); WHITE BLOOD COUNT (AUTO) 27.3 K/uL (4.5-11.0)
[2017-03-04 12:12] LABS: NEUTROPHILS % (AUTO) 91.5 % (40.0-70.0)
[2017-03-04 12:26] LABS: RBC MORPHOLOGY COMMENT ABNORMAL RBC MORPH
[2017-03-04] MEDS: CefTRIAXone 1 GM/DEXTROSE 50 ML IV SCH (16:36)
[2017-03-04 16:39] VITALS: BP 118/61
[2017-03-04] MEDS ORDERED: CEFX1I IV (18:48)
[2017-03-04] MEDS ORDERED: ASPI325T PO (18:51)
[2017-03-04] MEDS ORDERED: BISA-72 PR (18:51)
== END 2017-03-04 18:50 | DRG 140 ==
LOC: EMS 11:30 → 5N 20:30
PROVIDERS: ADMIT Internal Medicine; ATTEND Internal Medicine
DX: J44.1 Chronic obstructive pulmonary disease with (acute) exacerbation (principal); Z99.81 Dependence on supplemental oxygen; E44.0 Moderate protein-calorie malnutrition; Z68.41 Body mass index [BMI] 40.0-44.9, adult; G43.909 Migraine, unspecified, not intractable, without status migrainosus; E87.6 Hypokalemia; G89.4 Chronic pain syndrome; D64.9 Anemia, unspecified; D72.829 Elevated white blood cell count, unspecified; T38.0X5A Adverse effect of glucocorticoids and synthetic analogues, initial encounter; R00.0 Tachycardia, unspecified; Z53.29 Procedure and treatment not carried out because of patient's decision for other reasons; X58.XXXA Exposure to other specified factors, initial encounter; I10 Essential (primary) hypertension; F41.9 Anxiety disorder, unspecified; Z90.49 Acquired absence of other specified parts of digestive tract; I25.2 Old myocardial infarction; Z86.73 Personal history of transient ischemic attack (TIA), and cerebral infarction without residual deficits; Y92.89 Other specified places as the place of occurrence of the external cause; Y93.89 Activity, other specified; Z88.1 Allergy status to other antibiotic agents; Z88.8 Allergy status to other drugs, medicaments and biological substances; Z91.011 Allergy to milk products; Y99.8 Other external cause status; Z87.01 Personal history of pneumonia (recurrent)
CPT/HCPCS: 70496; 70544; 70553; 82962; 87040; 87081; 93005; 93880; 94640; 94644; 96365; 96366; 96375; 96376; 97110; 97112; 97163; 97167; 97530; 99285; A9585; C9113; J0696; J2270; J2405; J2920; J2930; J3535; J7050